=== PATIENT | female | born 1955 | race Caucasian/White ===

== ENCOUNTER 2020-05-19 09:33 | Outpatient (REF) | payer OTHER, SELFPAY | END 2020-05-19 09:34 | disposition home or self-care (01) | LOC: HO.LNP 09:33 | PROVIDERS: PCP Internal Medicine; Visit Provider Surgery | DX: L91.8 Other hypertrophic disorders of the skin (principal); Z88.0 Allergy status to penicillin; Z88.2 Allergy status to sulfonamides; Z88.8 Allergy status to other drugs, medicaments and biological substances | CPT/HCPCS: 11200; 88305 ==

== ENCOUNTER 2020-10-23 07:01 | Day surgery (SDC) | payer OTHER, SELFPAY ==
[2020-10-19 12:38] VITALS: BMI 31.8
--- NOTE | 2020-10-22 10:26 | HO.ANESPROP2 ---
HPI - Anesthesia Eval Consult details Narrative: 65yo F for Colonoscopy PMFSH Active Problems Active Problems: All Active Problems (Updated 05/19/20 @ 11:24 by Mack King, RN) Multiple acquired skin tags (Acute) Past Medical History Medical History (Updated 05/19/20 @ 11:24 by Mack King, RN) Hypercholesterolemia Interstitial cystitis Low back pain Surgical History Surgical History (Updated 10/16/20 @ 14:51 by Ingrid Faulkner) H/O colonoscopy History of back surgery History of Hx of shoulder surgery Hx of tubal ligation Social History Social History Smoking Status: Unknown if ever smoked Advance Directives Information Provided: No Meds Allergies Allergy/AdvReac Type Severity Reaction Status Date / Time erythromycin base Allergy Intermediate Hives Verified 10/16/20 14:49 fluoxetine [Prozac] Allergy Intermediate rash Verified 10/16/20 14:48 penicillin V Allergy Intermediate hives Verified 10/16/20 14:48 Sulfa (Sulfonamide Allergy Intermediate hives Verified 10/16/20 14:48 Antibiotics) buspirone [From BuSpar] AdvReac Intermediate blurred Verified 10/16/20 14:49 vision SSRI's Allergy Intermediate oral Uncoded 10/16/20 14:48 swelling Home Medications Medication Instructions Recorded Confirmed Last Taken Type albuterol sulfate 90 mcg/actuation 1 puff INHALATION Q4-6H PRN 05/19/20 Unknown History aerosol inhaler acetaminophen [Tylenol] 325 mg PO QID PRN 10/19/20 10/19/20 Unknown History aspirin [Aspirin Low Dose] 81 mg PO DAILY 10/19/20 10/19/20 10/16/20 History ibuprofen [Advil] 200 mg PO BID PRN 10/19/20 10/19/20 10/16/20 History multivitamin 1 tab PO DAILY 10/19/20 10/19/20 Unknown History omega-3 fatty acids [Fish Oil] 1,000 mg PO DAILY 10/19/20 10/19/20 10/16/20 History phytosterol combination no.1 500 mg PO DAILY 10/19/20 10/19/20 Unknown History [Cholest Care] vit C,E-Hx-jnidt-lutein-zeaxan 1 tab PO BID 10/19/20 10/19/20 Unknown History [PreserVision AREDS-2] Exam Exam Date and Time: October 22, 2020 1026 Height,Weight and Vital Signs: Height 5 ft 6.5 in Weight 90.718 kg Assessment and Plan Assessment Anesthesia Assessment: Chart Reviewed
[2020-10-23 07:34] VITALS: BP 148/87; PULSE 74; RESP 16; TEMP 36.5; O2SAT 97
[2020-10-23] MEDS: Lactated Ringers 1,000 ML 100 ML IVCONT (07:55)
[2020-10-23 09:39] VITALS: PULSE 85
--- NOTE | 2020-10-23 09:39 | PM.OP ---
Brief Operative Note Date of Service: 10/23/20 Pre-op diagnosis: Screening Post-op diagnosis: other (Colon polyp, Diverticulosis) Procedure: Colonoscopy to the cecum with biopsy/removal of polyp Surgeon: Leo Latham Anesthesia: MAC Estimated blood loss (mL): 4.0 Pathology: other (A. Transverse colon polyp) Condition: stable Disposition: PACU
[2020-10-23 09:52] VITALS: BP 128/87; PULSE 79; RESP 18; O2SAT 100
--- NOTE | 2020-10-23 09:55 | OP_ITS ---
SURGEON: Leo Latham MD INDICATIONS: The patient presents for evaluation of colorectal cancer screening, personal history of tubular adenoma. Full consent has been obtained from her for this, including risks of bleeding and perforation. PREOPERATIVE DIAGNOSIS: POSTOPERATIVE DIAGNOSIS: PROCEDURE PERFORMED: Colonoscopy to the cecum with biopsy and removal of polyp. ESTIMATED BLOOD LOSS: COMPLICATIONS: ANESTHESIA: Monitored anesthesia care. ASSISTANTS: SPECIMENS: PREOPERATIVE DIAGNOSES: Colorectal cancer screening and personal history of tubular adenoma of the colon. POSTOPERATIVE DIAGNOSES: Colorectal cancer screening and personal history of tubular adenoma of the colon, small colon polyp, diverticulosis and internal hemorrhoids. DESCRIPTION OF PROCEDURE: The patient was placed in the left lateral decubitus position. The digital rectal exam revealed no abnormalities. The Olympus video pediatric colonoscope was entered into the rectum and advanced easily to the cecum. Once in the cecum, I did identify normal-appearing cecal pouch with appendiceal orifice and a normal-appearing ileocecal valve. The entire cecum and ileocecal valve were well visualized and appeared normal. There was transillumination of light deep in the right lower quadrant. The scope was slowly withdrawn assessing all mucosal surfaces carefully. Preparation was excellent. In the transverse colon, was an approximately 3 or 4 mm polyp, which was biopsied and completely removed with cold biopsy forceps. I did not visualize any other polyps, colitis, nor angiodysplasia. There was a mild amount of sigmoid diverticulosis. In the rectum, scope was retroflexed visualizing internal hemorrhoids, but no other pathology. The rectal mucosa appeared normal. Scope was straightened out and withdrawn from the patient. She tolerated the procedure well and was returned to the recovery area in stable condition. IMPRESSION: 1. Small colon polyp, status post biopsy and removal. 2. Diverticulosis. 3. Internal hemorrhoids. PLAN: The results of biopsy will be checked. I would recommend a repeat colonoscopy in 5 years for further screening. She will otherwise see me on a p.r.n. basis. MD ARIA [place]/ZULEMA / [phone]
[2020-10-23 10:07] VITALS: BP 164/84; PULSE 84; RESP 18; O2SAT 98
[2020-10-23 10:24] VITALS: TEMP 36.7
== END 2020-10-23 10:48 | disposition home or self-care (01) ==
PROVIDERS: PCP Internal Medicine; Visit Provider Internal Medicine
PROC: 0DJD8ZZ Inspection of Lower Intestinal Tract, Via Natural or Artificial Opening Endoscopic (ICD-10-PCS; CPT 45378; principal; 2020-10-23 08:20)
DX: Z12.11 Encounter for screening for malignant neoplasm of colon (principal); Z86.010 Personal history of colon polyps; K63.5 Polyp of colon; K57.30 Diverticulosis of large intestine without perforation or abscess without bleeding; K64.8 Other hemorrhoids; Z79.82 Long term (current) use of aspirin; Z79.899 Other long term (current) drug therapy; Z88.0 Allergy status to penicillin; Z88.2 Allergy status to sulfonamides; Z88.8 Allergy status to other drugs, medicaments and biological substances
CPT/HCPCS: 45380; 88305

== ENCOUNTER 2020-10-29 10:49 | Outpatient (REF) | payer OTHER, SELFPAY ==
--- NOTE | ~2020-10-29 | XR_ITS ---
EXAMINATION: XR CHEST CLINICAL INFORMATION: Bronchitis COMPARISON: 07/26/2010 TECHNIQUE: 2 views of the chest were obtained. FINDINGS: The lungs are well expanded. There is no focal consolidation, edema, or effusion. No pneumothorax. The cardiomediastinal silhouette is within normal limits. No acute osseous abnormality. XR/XR chest 2V IMPRESSION: No acute pulmonary finding.
== END 2020-10-29 10:50 | disposition home or self-care (01) ==
LOC: HO.XRAY 10:49
PROVIDERS: PCP Internal Medicine; Visit Provider Internal Medicine
DX: J40 Bronchitis, not specified as acute or chronic (principal)
CPT/HCPCS: 71046

== ENCOUNTER → 2021-01-11 10:47 | Outpatient (BNVA) | payer OTHER, SELFPAY | PROVIDERS: PCP Internal Medicine; Referring Provider Internal Medicine; Visit Provider Surgery ==

== ENCOUNTER 2021-01-28 10:42 | Outpatient (REF) | payer OTHER, SELFPAY | END 2021-01-28 10:43 | disposition home or self-care (01) | LOC: HO.LAB 10:42 | PROVIDERS: PCP Internal Medicine; Referring Provider Internal Medicine; Visit Provider Surgery | DX: L91.8 Other hypertrophic disorders of the skin (principal); D23.9 Other benign neoplasm of skin, unspecified; Z79.899 Other long term (current) drug therapy | CPT/HCPCS: 11400; 11420; 88304; 88305 ==

== ENCOUNTER 2021-04-13 07:52 | Outpatient (REF) | payer OTHER, SELFPAY ==
--- NOTE | ~2021-04-13 | MR_ITS ---
EXAMINATION: MR BRAIN WITHOUT AND WITH CONTRAST CLINICAL INFORMATION: Left ear tinnitus. Vertigo. COMPARISON: None available. TECHNIQUE: Multiplanar, multisequence MRI of the brain was obtained using a skull base protocol without and following the administration of 7.5 mL of Gadavist intravenous contrast. FINDINGS: No focal restricted diffusion is demonstrated to suggest acute or subacute cerebral ischemia. No evidence of acute or chronic hemorrhagic products on heme-sensitive imaging. Scattered periventricular, deep white matter, and brainstem T2 FLAIR hyperintensities consistent with mild to moderate underlying microangiopathy. Proportional prominence of the ventricles and sulcal spaces without evidence of obstructive hydrocephalus. No abnormal mass effect. No midline shift. Normal appearance of the pituitary gland. Normal positioning of the cerebellar tonsils. No mass of the cerebellopontine angles. Normal appearance of the cranial nerve V, VII, and VIII nerve roots. No edema or vascular loops near the nerve root entry sites. Normal appearance of the internal auditory canals without enhancing mass lesions. No abnormal enhancement along the course of the facial nerves bilaterally. Normal appearance of the labyrinthine structures without loss of T2 signal or abnormal enhancement. Normal arterial and venous vascular flow voids are present. No abnormal intracranial contrast enhancement. Normal, homogeneous marrow signal. Mild mucosal thickening of the paranasal sinuses. Mild rightward nasal septal deviation. No signal abnormalities within the mastoids. Moderate degenerative arthropathy of the temporomandibular joints. MR/MR head/brain wo/w con IMPRESSION: 1. No acute intracranial abnormalities. No abnormal intracranial enhancement. 2. Mild to moderate underlying microangiopathy.
== END 2021-04-13 07:53 | disposition home or self-care (01) ==
LOC: HO.MRI 07:52
PROVIDERS: PCP Internal Medicine; Visit Provider Otolaryngology
DX: H93.12 Tinnitus, left ear (principal); H81.4 Vertigo of central origin
CPT/HCPCS: 70553; A9585

== ENCOUNTER 2021-04-29 08:48 | Outpatient (REF) | payer OTHER, SELFPAY | END 2021-04-29 08:49 | disposition home or self-care (01) | LOC: HO.LAB 08:48 | PROVIDERS: PCP Internal Medicine; Visit Provider Surgery | DX: L91.8 Other hypertrophic disorders of the skin (principal) | CPT/HCPCS: 11200; 11400; 88304; 88305 ==

== ENCOUNTER 2021-06-15 09:49 | Outpatient (REF) | payer OTHER, SELFPAY ==
[2021-06-15 10:20] LABS: MANUAL DIFF FLAG NO
[2021-06-15 10:49] LABS: Basophils Absolute Auto 0.1 X10*3/uL (0.0-0.2); Basophils Percent Auto 1.1 % (0-2); Eosinophils Absolute Auto 0.2 X10*3/uL (0.0-0.4); Hematocrit 42.6 % (37.0-47.0); Hemoglobin 13.9 g/dl (12.0-16.0); Imm Gran Abs Auto 0.03 X10*3/uL (0.00-0.03); Imm Gran Pct Auto 0.4 % (0.0-0.4); Lymphocytes Absolute Auto 1.9 X10*3/uL (1.2-4.9); Lymphocytes Percent Auto 25.3 % (20-40); Mean Corpuscular HGB Conc 32.6 g/dl (31.0-35.0); Mean Corpuscular Hemoglobin 29.1 pg (27.0-33.0); Mean Corpuscular Volume 89.1 fL (80.0-98.0); Monocytes Absolute Auto 0.5 X10*3/uL (0.1-1.2); Monocytes Percent Auto 6.8 % (2-11); Neutrophils Absolute Auto 4.7 x10*3/uL (2.0-8.3); Neutrophils Percent Auto 63.4 % (45-73); Platelet Count 298 X10*3/uL (160-400); Red Blood Count 4.78 X10*6/uL (4.20-5.50); Red Cell Distribution Width 14.4 % (11.0-16.0); White Blood Count 7.4 X10*3/uL (4.8-10.8)
[2021-06-15 11:23] LABS: Alanine Aminotransferase 33 U/L (0-31); Albumin Level 4.2 g/dL (3.5-5.0); Alkaline Phosphatase 75 U/L (39-117); Anion Gap 10 (12-20); Aspartate Amino Transferase 38 U/L (5-31); Bilirubin Total 0.4 mg/dL (0.0-1.0); Blood Urea Nitrogen 17 mg/dL (9-16); Calcium 9.3 mg/dL (8.4-10.2); Carbon Dioxide 31 mmol/L (22-29); Chloride 104 mmol/L (96-108); Estimated Glomerular Filt Rate > 60; Glucose Fasting 95 mg/dL (60-99); Potassium 4.8 mmol/L (3.3-5.1); Sodium 140 mmol/L (135-145); Total Protein 6.7 g/dL (6.5-8.0)
[2021-06-15 11:45] LABS: Thyroid Stimulating Hormone 1.61 uIU/mL (0.32-4.0); Vitamin D 25-OH Total 58.7 ng/mL (>30)
[2021-06-15 12:17] LABS: Folate > 20.0 ng/mL (> or = 4.0); Vitamin B12 992 pg/mL (200-900)
[2021-06-19 11:11] LABS: Vitamin B1 21 nmol/L (8-30)
[2021-06-22 06:06] LABS: Lipoprotein A 20 nmol/L (<75)
== END 2021-06-15 09:50 | disposition home or self-care (01) ==
LOC: HO.LAB 09:49
PROVIDERS: PCP Internal Medicine; Visit Provider Internal Medicine
DX: H93.13 Tinnitus, bilateral (principal); E78.00 Pure hypercholesterolemia, unspecified; R41.3 Other amnesia
CPT/HCPCS: 36415; 80053; 82306; 82607; 82746; 83695; 84425; 84443; 85025

== ENCOUNTER 2022-07-14 10:31 | Outpatient (REF) | payer OTHER, SELFPAY ==
[2022-07-14 10:48] LABS: MANUAL DIFF FLAG NO
[2022-07-14 11:48] LABS: Basophils Absolute Auto 0.1 X10*3/uL (0.0-0.2); Basophils Percent Auto 0.9 % (0-2); Eosinophils Absolute Auto 0.2 X10*3/uL (0.0-0.4); Eosinophils Percent Auto 3.6 % (0-4); Hematocrit 40.9 % (37.0-47.0); Hemoglobin 13.1 g/dl (12.0-16.0); Imm Gran Abs Auto 0.01 X10*3/uL (0.00-0.03); Imm Gran Pct Auto 0.1 % (0.0-0.4); Lymphocytes Absolute Auto 1.5 X10*3/uL (1.2-4.9); Lymphocytes Percent Auto 22.5 % (20-40); Mean Corpuscular Hemoglobin 28.5 pg (27.0-33.0); Mean Corpuscular Volume 89.1 fL (80.0-98.0); Mean Platelet Volume 9.7 fL (9.4-12.3); Monocytes Absolute Auto 0.6 X10*3/uL (0.1-1.2); Monocytes Percent Auto 8.5 % (2-11); Neutrophils Absolute Auto 4.3 x10*3/uL (2.0-8.3); Neutrophils Percent Auto 64.4 % (45-73); Platelet Count 272 X10*3/uL (160-400); Red Blood Count 4.59 X10*6/uL (4.20-5.50); Red Cell Distribution Width 14.6 % (11.0-16.0); White Blood Count 6.7 X10*3/uL (4.8-10.8)
[2022-07-14 13:37] LABS: Alanine Aminotransferase 20 U/L (0-31); Alkaline Phosphatase 82 U/L (39-117); Anion Gap 13 (12-20); Aspartate Amino Transferase 25 U/L (5-31); Bilirubin Total 0.6 mg/dL (0.0-1.0); Blood Urea Nitrogen 16 mg/dL (9-16); Calcium 8.8 mg/dL (8.4-10.2); Carbon Dioxide 26 mmol/L (22-29); Chloride 105 mmol/L (96-108); Cholesterol 228 mg/dL; Estimated Glomerular Filt Rate > 60; Glucose Fasting 87 mg/dL (60-99); HDL Cholesterol 60 mg/dL; LDL Cholesterol Calculated 148 mg/dl; Potassium 4.7 mmol/L (3.3-5.1); Sodium 139 mmol/L (135-145); Thyroid Stimulating Hormone 1.68 uIU/mL (0.32-4.0); Total Protein 6.1 g/dL (6.5-8.0); Triglycerides 103 mg/dL; Vitamin D 25-OH Total 42.7 ng/mL (>30)
== END 2022-07-14 10:32 | disposition home or self-care (01) ==
LOC: HO.LAB 10:31
PROVIDERS: PCP Internal Medicine; Visit Provider Internal Medicine
DX: E78.00 Pure hypercholesterolemia, unspecified (principal)
CPT/HCPCS: 36415; 80053; 80061; 82306; 84443; 85025

== ENCOUNTER → 2022-08-18 09:24 | Outpatient (BNVA) | payer OTHER, SELFPAY | PROVIDERS: PCP Internal Medicine; Visit Provider Surgery | DX: L98.9 Disorder of the skin and subcutaneous tissue, unspecified (principal) | CPT/HCPCS: 11200 ==

== ENCOUNTER 2022-08-25 09:35 | Outpatient (REF) | payer OTHER, SELFPAY ==
[2022-08-25 09:44] LABS: MANUAL DIFF FLAG NO
[2022-08-25 10:40] LABS: Basophils Absolute Auto 0.1 X10*3/uL (0.0-0.2); Basophils Percent Auto 1.2 % (0-2); Eosinophils Absolute Auto 0.2 X10*3/uL (0.0-0.4); Eosinophils Percent Auto 2.9 % (0-4); Hematocrit 43.8 % (37.0-47.0); Hemoglobin 13.8 g/dl (12.0-16.0); Imm Gran Abs Auto 0.03 X10*3/uL (0.00-0.03); Imm Gran Pct Auto 0.4 % (0.0-0.4); Lymphocytes Absolute Auto 1.6 X10*3/uL (1.2-4.9); Lymphocytes Percent Auto 23.1 % (20-40); Mean Corpuscular HGB Conc 31.5 g/dl (31.0-35.0); Mean Platelet Volume 9.2 fL (9.4-12.3); Monocytes Absolute Auto 0.5 X10*3/uL (0.1-1.2); Monocytes Percent Auto 7.8 % (2-11); Neutrophils Absolute Auto 4.5 x10*3/uL (2.0-8.3); Neutrophils Percent Auto 64.6 % (45-73); Platelet Count 276 X10*3/uL (160-400); Red Blood Count 4.92 X10*6/uL (4.20-5.50); Red Cell Distribution Width 14.4 % (11.0-16.0); White Blood Count 6.9 X10*3/uL (4.8-10.8)
[2022-08-25 11:13] LABS: Anion Gap 12 (12-20); Blood Urea Nitrogen 17 mg/dL (9-16); Calcium 9.4 mg/dL (8.4-10.2); Carbon Dioxide 30 mmol/L (22-29); Chloride 104 mmol/L (96-108); Estimated Glomerular Filt Rate > 60; Glucose Random 75 mg/dL (60-115); Magnesium 2.1 mg/dL (1.6-2.6); Potassium 4.8 mmol/L (3.3-5.1); Sodium 141 mmol/L (135-145)
== END 2022-08-25 09:36 | disposition home or self-care (01) ==
LOC: HO.LAB 09:35
PROVIDERS: PCP Internal Medicine; Visit Provider Internal Medicine
DX: R25.2 Cramp and spasm (principal)
CPT/HCPCS: 36415; 80048; 83735; 85025

== ENCOUNTER 2023-02-22 16:17 | Outpatient (REF) | payer OTHER, SELFPAY ==
--- NOTE | ~2023-02-22 | XR_ITS ---
EXAMINATION: XR CERVICAL SPINE CLINICAL INFORMATION: Strain of neck COMPARISON: 06/05/2014 TECHNIQUE: 6 views of the cervical spine, inclusive of flexion and extension views, were obtained. FINDINGS: Redemonstration cervical lordotic reversal. Progression disc space narrowings at C4-C6. C5 and C6 vertebral body height losses likely degenerative. Degenerative spurring again seen multilevel neuroforaminal narrowings are again identified. Facet hypertrophic changes are present. Odontoid is intact, posterior elements are aligned and no prevertebral soft tissue swelling seen. Lung apices are clear. Soft tissues are unremarkable. XR/XR cervical spine 5V IMPRESSION: Cervical lordotic reversal, progression of cervical spondylosis, and bilateral neural foraminal narrowings.
== END 2023-02-22 16:18 | disposition home or self-care (01) ==
LOC: HO.XRAY 16:17
PROVIDERS: Visit Provider Internal Medicine
DX: S16.1XXA Strain of muscle, fascia and tendon at neck level, initial encounter (principal)
CPT/HCPCS: 72050

== ENCOUNTER 2023-06-21 12:05 | Outpatient (REF) | payer OTHER, SELFPAY ==
[2023-06-21 12:33] LABS: MANUAL DIFF FLAG NO
[2023-06-21 12:41] LABS: Basophils Absolute Auto 0.1 X10*3/uL (0.0-0.2); Basophils Percent Auto 0.8 % (0-2); Eosinophils Absolute Auto 0.2 X10*3/uL (0.0-0.4); Eosinophils Percent Auto 2.6 % (0-4); Hematocrit 42.5 % (37.0-47.0); Hemoglobin 13.4 g/dl (12.0-16.0); Imm Gran Abs Auto 0.03 X10*3/uL (0.00-0.03); Imm Gran Pct Auto 0.4 % (0.0-0.4); Lymphocytes Percent Auto 26.9 % (20-40); Mean Corpuscular HGB Conc 31.5 g/dl (31.0-35.0); Mean Corpuscular Hemoglobin 29.2 pg (27.0-33.0); Mean Corpuscular Volume 92.6 fL (80.0-98.0); Mean Platelet Volume 9.1 fL (9.4-12.3); Monocytes Absolute Auto 0.4 X10*3/uL (0.1-1.2); Neutrophils Absolute Auto 4.7 x10*3/uL (2.0-8.3); Neutrophils Percent Auto 63.3 % (45-73); Platelet Count 286 X10*3/uL (160-400); Red Blood Count 4.59 X10*6/uL (4.20-5.50); Red Cell Distribution Width 14.6 % (11.0-16.0); White Blood Count 7.4 X10*3/uL (4.8-10.8)
[2023-06-21 13:17] LABS: Alanine Aminotransferase 17 U/L (0-31); Albumin Level 3.9 g/dL (3.5-5.0); Alkaline Phosphatase 63 U/L (39-117); Anion Gap 10 (12-20); Aspartate Amino Transferase 23 U/L (5-31); Bilirubin Direct < 0.2 mg/dL (0.0-0.5); Bilirubin Total 0.2 mg/dL (0.0-1.0); Blood Urea Nitrogen 17 mg/dL (9-16); C Reactive Protein 0.25 mg/dL (< or = 0.50); Calcium 9.4 mg/dL (8.4-10.2); Carbon Dioxide 29 mmol/L (22-29); Chloride 107 mmol/L (96-108); Estimated Glomerular Filt Rate > 60; Glucose Random 102 mg/dL (60-115); Potassium 4.4 mmol/L (3.3-5.1); Sodium 142 mmol/L (135-145); Total Protein 6.4 g/dL (6.5-8.0)
[2023-06-21 13:27] LABS: Erythrocyte Sedimentation Rate 10 MM/HR (0-20)
== END 2023-06-21 12:06 | disposition home or self-care (01) ==
LOC: HO.LAB 12:05
PROVIDERS: PCP Internal Medicine; Visit Provider Internal Medicine
DX: R53.83 Other fatigue (principal)
CPT/HCPCS: 36415; 80048; 80076; 84443; 85025; 85652; 86140

== ENCOUNTER 2023-09-26 12:13 | Outpatient (REF) | payer OTHER, SELFPAY ==
[2023-09-26 14:07] LABS: Appearance Urine Clear; Color Urine Yellow; Glucose Urine UA Negative (Negative); Leukocyte Esterase Urine Negative (Negative); Nitrite Urine Negative (Negative); Specific Gravity - Urine 1.015 (1.005-1.025); Urine Blood Negative (Negative); Urine Ketones Negative (Negative); Urine Protein Negative (Neg-Trace)
== END 2023-09-26 12:14 | disposition home or self-care (01) ==
LOC: HO.LAB 12:13
PROVIDERS: PCP Internal Medicine; Visit Provider Internal Medicine
DX: R30.0 Dysuria (principal)
CPT/HCPCS: 81003; 87086

== ENCOUNTER 2023-12-27 08:19 | Outpatient (REF) | payer OTHER, SELFPAY ==
--- NOTE | ~2023-12-27 | XR_ITS ---
EXAMINATION: XR CHEST CLINICAL INFORMATION: Hypercholesterolemia, interstitial cystitis. COMPARISON: October 29, 2020 TECHNIQUE: 2 views of the chest were obtained. FINDINGS: The lungs are well inflated. There is no gross pneumothorax. Heart size is normal. S-shaped thoracolumbar scoliosis with multilevel degenerative changes. No pleural effusion. No new focal consolidation to suggest pneumonia. XR/XR chest 2V IMPRESSION: No evidence of pneumonia.
[2023-12-27 08:32] LABS: MANUAL DIFF FLAG NO
[2023-12-27 08:55] LABS: Basophils Absolute Auto 0.1 X10*3/uL (0.0-0.2); Basophils Percent Auto 1.2 % (0-2); Eosinophils Absolute Auto 0.2 X10*3/uL (0.0-0.4); Eosinophils Percent Auto 2.8 % (0-4); Hemoglobin 15.2 g/dl (12.0-16.0); Imm Gran Abs Auto 0.03 X10*3/uL (0.00-0.03); Imm Gran Pct Auto 0.5 % (0.0-0.4); Lymphocytes Absolute Auto 1.6 X10*3/uL (1.2-4.9); Lymphocytes Percent Auto 25.5 % (20-40); Mean Corpuscular HGB Conc 32.3 g/dl (31.0-35.0); Mean Corpuscular Hemoglobin 29.1 pg (27.0-33.0); Mean Corpuscular Volume 89.9 fL (80.0-98.0); Mean Platelet Volume 9.4 fL (9.4-12.3); Monocytes Absolute Auto 0.4 X10*3/uL (0.1-1.2); Monocytes Percent Auto 6.9 % (2-11); Neutrophils Absolute Auto 3.8 x10*3/uL (2.0-8.3); Neutrophils Percent Auto 63.1 % (45-73); Platelet Count 255 X10*3/uL (160-400); Red Blood Count 5.23 X10*6/uL (4.20-5.50); Red Cell Distribution Width 14.8 % (11.0-16.0); White Blood Count 6.1 X10*3/uL (4.8-10.8)
[2023-12-27 09:57] LABS: Alanine Aminotransferase 16 U/L (0-31); Albumin Level 4.2 g/dL (3.5-5.0); Alkaline Phosphatase 70 U/L (39-117); Anion Gap 12 (12-20); Aspartate Amino Transferase 21 U/L (5-31); Bilirubin Total 0.5 mg/dL (0.0-1.0); Blood Urea Nitrogen 22 mg/dL (9-16); Calcium 9.2 mg/dL (8.4-10.2); Carbon Dioxide 27 mmol/L (22-29); Chloride 107 mmol/L (96-108); Cholesterol 259 mg/dL (<200); Estimated Glomerular Filt Rate > 60; Glucose Fasting 95 mg/dL (60-99); HDL Cholesterol 54 mg/dL (>40); LDL Cholesterol Calculated 174 mg/dL (<100); Potassium 4.5 mmol/L (3.3-5.1); Sodium 141 mmol/L (135-145); Triglycerides 156 mg/dL (<150)
[2023-12-27 10:07] LABS: Thyroid Stimulating Hormone 2.14 uIU/mL (0.32-4.0); Vitamin D 25-OH Total 54.7 ng/mL (>30)
== END 2023-12-27 08:20 | disposition home or self-care (01) ==
LOC: HO.LAB 08:19
PROVIDERS: PCP Internal Medicine; Visit Provider Internal Medicine
DX: Z00.00 Encounter for general adult medical examination without abnormal findings (principal); E78.00 Pure hypercholesterolemia, unspecified; N30.10 Interstitial cystitis (chronic) without hematuria
CPT/HCPCS: 36415; 71046; 80053; 80061; 82306; 84443; 85025

== ENCOUNTER 2024-05-09 08:24 | Outpatient (REF) | payer MEDICARE, OTHER, SELFPAY ==
--- NOTE | ~2024-05-09 | XR_ITS ---
EXAMINATION: XR LUMBAR SPINE XR PELVIS XR SACRUM/COCCYX XR SACROILIAC JOINTS CLINICAL INFORMATION: Lower back pain. COMPARISON: None available. TECHNIQUE: AP, lateral, and coned-down views of the lumbar spine. AP view the pelvis. AP and lateral views of the sacrum and coccyx. Bilateral Judet views of the sacroiliac joints. FINDINGS: Lumbar Spine: Normal vertebral body alignment. The lumbar lordosis is maintained. No acute fracture or subluxation. No loss of vertebral body height. Loss of intervertebral disc height with endplate osteophytes throughout the lumbar spine, most severe at L5-S1. Prominent bilateral facet arthropathy throughout the lower lumbar spine. No concerning lytic or blastic osseous lesion. No abnormal soft tissue calcification. Pelvis: No acute fracture or dislocation. Mild bilateral hip joint space narrowing with small marginal osteophytes. No osseous erosion. No evidence of femoral head avascular necrosis. No abnormal soft tissue calcification. Sacrum/Coccyx: No acute fracture or subluxation. No concerning lytic or blastic osseous lesion. No abnormal soft tissue calcification. Sacral Iliac Joints: Mild bilateral sacral iliac joint space narrowing with tiny marginal osteophytes. No periarticular erosion. No concerning lytic or blastic osseous lesion. No abnormal soft tissue calcification. XR/XR sacroiliac joint 1-2V IMPRESSION: 1. Multilevel degenerative disc disease throughout the lumbar spine, most severe at L5-S1. Prominent lower lumbar spine facet arthropathy. 2. Mild bilateral sacroiliac osteoarthritis. 3. Mild bilateral hip osteoarthritis. 4. No acute fracture or dislocation. Electronically signed by: Moise Yi MD 05/09/2024 11:24 AM EDT
--- NOTE | ~2024-05-09 | XR_ITS ---
EXAMINATION: XR LUMBAR SPINE XR PELVIS XR SACRUM/COCCYX XR SACROILIAC JOINTS CLINICAL INFORMATION: Lower back pain. COMPARISON: None available. TECHNIQUE: AP, lateral, and coned-down views of the lumbar spine. AP view the pelvis. AP and lateral views of the sacrum and coccyx. Bilateral Judet views of the sacroiliac joints. FINDINGS: Lumbar Spine: Normal vertebral body alignment. The lumbar lordosis is maintained. No acute fracture or subluxation. No loss of vertebral body height. Loss of intervertebral disc height with endplate osteophytes throughout the lumbar spine, most severe at L5-S1. Prominent bilateral facet arthropathy throughout the lower lumbar spine. No concerning lytic or blastic osseous lesion. No abnormal soft tissue calcification. Pelvis: No acute fracture or dislocation. Mild bilateral hip joint space narrowing with small marginal osteophytes. No osseous erosion. No evidence of femoral head avascular necrosis. No abnormal soft tissue calcification. Sacrum/Coccyx: No acute fracture or subluxation. No concerning lytic or blastic osseous lesion. No abnormal soft tissue calcification. Sacral Iliac Joints: Mild bilateral sacral iliac joint space narrowing with tiny marginal osteophytes. No periarticular erosion. No concerning lytic or blastic osseous lesion. No abnormal soft tissue calcification. XR/XR sacrum coccyx min 2V IMPRESSION: 1. Multilevel degenerative disc disease throughout the lumbar spine, most severe at L5-S1. Prominent lower lumbar spine facet arthropathy. 2. Mild bilateral sacroiliac osteoarthritis. 3. Mild bilateral hip osteoarthritis. 4. No acute fracture or dislocation. Electronically signed by: Moise Yi MD 05/09/2024 11:24 AM EDT
--- NOTE | ~2024-05-09 | XR_ITS ---
EXAMINATION: XR LUMBAR SPINE XR PELVIS XR SACRUM/COCCYX XR SACROILIAC JOINTS CLINICAL INFORMATION: Lower back pain. COMPARISON: None available. TECHNIQUE: AP, lateral, and coned-down views of the lumbar spine. AP view the pelvis. AP and lateral views of the sacrum and coccyx. Bilateral Judet views of the sacroiliac joints. FINDINGS: Lumbar Spine: Normal vertebral body alignment. The lumbar lordosis is maintained. No acute fracture or subluxation. No loss of vertebral body height. Loss of intervertebral disc height with endplate osteophytes throughout the lumbar spine, most severe at L5-S1. Prominent bilateral facet arthropathy throughout the lower lumbar spine. No concerning lytic or blastic osseous lesion. No abnormal soft tissue calcification. Pelvis: No acute fracture or dislocation. Mild bilateral hip joint space narrowing with small marginal osteophytes. No osseous erosion. No evidence of femoral head avascular necrosis. No abnormal soft tissue calcification. Sacrum/Coccyx: No acute fracture or subluxation. No concerning lytic or blastic osseous lesion. No abnormal soft tissue calcification. Sacral Iliac Joints: Mild bilateral sacral iliac joint space narrowing with tiny marginal osteophytes. No periarticular erosion. No concerning lytic or blastic osseous lesion. No abnormal soft tissue calcification. XR/XR pelvis 1-2V IMPRESSION: 1. Multilevel degenerative disc disease throughout the lumbar spine, most severe at L5-S1. Prominent lower lumbar spine facet arthropathy. 2. Mild bilateral sacroiliac osteoarthritis. 3. Mild bilateral hip osteoarthritis. 4. No acute fracture or dislocation. Electronically signed by: Moise Yi MD 05/09/2024 11:24 AM EDT
--- NOTE | ~2024-05-09 | XR_ITS ---
EXAMINATION: XR LUMBAR SPINE XR PELVIS XR SACRUM/COCCYX XR SACROILIAC JOINTS CLINICAL INFORMATION: Lower back pain. COMPARISON: None available. TECHNIQUE: AP, lateral, and coned-down views of the lumbar spine. AP view the pelvis. AP and lateral views of the sacrum and coccyx. Bilateral Judet views of the sacroiliac joints. FINDINGS: Lumbar Spine: Normal vertebral body alignment. The lumbar lordosis is maintained. No acute fracture or subluxation. No loss of vertebral body height. Loss of intervertebral disc height with endplate osteophytes throughout the lumbar spine, most severe at L5-S1. Prominent bilateral facet arthropathy throughout the lower lumbar spine. No concerning lytic or blastic osseous lesion. No abnormal soft tissue calcification. Pelvis: No acute fracture or dislocation. Mild bilateral hip joint space narrowing with small marginal osteophytes. No osseous erosion. No evidence of femoral head avascular necrosis. No abnormal soft tissue calcification. Sacrum/Coccyx: No acute fracture or subluxation. No concerning lytic or blastic osseous lesion. No abnormal soft tissue calcification. Sacral Iliac Joints: Mild bilateral sacral iliac joint space narrowing with tiny marginal osteophytes. No periarticular erosion. No concerning lytic or blastic osseous lesion. No abnormal soft tissue calcification. XR/XR lumbar spine 2-3V IMPRESSION: 1. Multilevel degenerative disc disease throughout the lumbar spine, most severe at L5-S1. Prominent lower lumbar spine facet arthropathy. 2. Mild bilateral sacroiliac osteoarthritis. 3. Mild bilateral hip osteoarthritis. 4. No acute fracture or dislocation. Electronically signed by: Moise Yi MD 05/09/2024 11:24 AM EDT
== END 2024-05-09 08:25 | disposition home or self-care (01) ==
LOC: HO.XRAY 08:24
PROVIDERS: PCP Internal Medicine; Visit Provider Internal Medicine
DX: M54.50 Low back pain, unspecified (principal)
CPT/HCPCS: 72100; 72170; 72200; 72220

== ENCOUNTER 2024-06-18 08:28 | Outpatient (REF) | payer MEDICARE, OTHER, SELFPAY ==
[2024-06-18 08:56] LABS: MANUAL DIFF FLAG NO
[2024-06-18 09:21] LABS: Basophils Absolute Auto 0.1 X10*3/uL (0.0-0.2); Basophils Percent Auto 1.1 % (0-2); Eosinophils Absolute Auto 0.1 X10*3/uL (0.0-0.4); Eosinophils Percent Auto 2.3 % (0-4); Hematocrit 44.3 % (37.0-47.0); Hemoglobin 14.5 g/dl (12.0-16.0); Imm Gran Abs Auto 0.02 X10*3/uL (0.00-0.03); Imm Gran Pct Auto 0.4 % (0.0-0.4); Lymphocytes Absolute Auto 1.5 X10*3/uL (1.2-4.9); Lymphocytes Percent Auto 28.4 % (20-40); Mean Corpuscular HGB Conc 32.7 g/dl (31.0-35.0); Mean Corpuscular Hemoglobin 29.8 pg (27.0-33.0); Mean Platelet Volume 8.9 fL (9.4-12.3); Monocytes Absolute Auto 0.5 X10*3/uL (0.1-1.2); Monocytes Percent Auto 8.9 % (2-11); Neutrophils Absolute Auto 3.1 x10*3/uL (2.0-8.3); Neutrophils Percent Auto 58.9 % (45-73); Platelet Count 254 X10*3/uL (160-400); Red Blood Count 4.87 X10*6/uL (4.20-5.50); Red Cell Distribution Width 14.3 % (11.0-16.0); White Blood Count 5.3 X10*3/uL (4.8-10.8)
[2024-06-18 11:08] LABS: Alanine Aminotransferase 19 U/L (0-31); Alkaline Phosphatase 63 U/L (39-117); Anion Gap 8 (12-20); Aspartate Amino Transferase 24 U/L (5-31); Bilirubin Total 0.3 mg/dL (0.0-1.0); Blood Urea Nitrogen 18 mg/dL (9-16); Calcium 9.3 mg/dL (8.4-10.2); Carbon Dioxide 30 mmol/L (22-29); Chloride 108 mmol/L (96-108); Cholesterol 250 mg/dL (<200); Estimated Glomerular Filt Rate > 60; Glucose Fasting 92 mg/dL (60-99); HDL Cholesterol 48 mg/dL (>40); LDL Cholesterol Calculated 170 mg/dL (<100); Potassium 4.3 mmol/L (3.3-5.1); Sodium 142 mmol/L (135-145); Total Protein 6.7 g/dL (6.5-8.0); Triglycerides 161 mg/dL (<150)
== END 2024-06-18 08:29 | disposition home or self-care (01) ==
LOC: HO.LAB 08:28
PROVIDERS: PCP Internal Medicine; Visit Provider Internal Medicine
DX: E78.00 Pure hypercholesterolemia, unspecified (principal)
CPT/HCPCS: 36415; 80053; 80061; 85025

== ENCOUNTER 2024-07-08 10:21 | Outpatient (REF) | payer MEDICARE, OTHER, SELFPAY ==
--- OUTSIDE RECORDS SUMMARY | 2024-07-10 14:30 | XMS_ITS ---
Author Organization [facility] Address [address] [place], [place] [id number] Care Team Providers Care Multimedia Editor Name Role Phone Leo Herrera Primary Care Provider REASON FOR VISIT 6 month f/u Encounters Encounter Location Date Provider Diagnosis [facility] Her[facility] DO, [facility] [address] [place] [phone] 07/05/2024 Leo Herrera PLAN OF TREATMENT Next Appt Details Provider Name:Leo eugene, 07/12/2024 11:00:00 AM, [address] [place], [place], [phone],
--- OUTSIDE RECORDS SUMMARY | 2024-07-10 14:31 | XMS_ITS ---
Author Organization [facility] Herrera DO [facility] Address [address] [place], [place] [id number] Care Team Providers Care Utilization Review Nurse Name Role Phone Leo Herrera Primary Care Provider [phone] REASON FOR VISIT 6 month f/u Encounters Encounter Location Date Provider Diagnosis [facility] Herrera [facility], [facility] [address] [place] [id number] 06/26/2024 Leo Herrera PLAN OF TREATMENT Next Appt Details Provider Name:Leo eugene, 07/12/2024 11:00:00 AM, [address] [place], [place], [phone],
--- OUTSIDE RECORDS SUMMARY | 2024-07-10 14:31 | XMS_ITS | Patient Health Record ---
Author Organization [facility] Address [address] [place] [address] Care Team Providers Care Telephone Switchboard Operator Name Role Phone Leo Herrera DO Primary Care Provider Unavail able Leo Latham Unavailable [phone] ALLERGIES Allergen (clinical drug ingredient) Drug/Non Drug Allergy documented on EMR Reaction Allergy Type Onset Date Status Sulfa Unknown Drug Allergy Active Penicillin Unknown Drug Allergy Active erythromycin Erythromycin Unknown Drug Allergy A ctive REASON FOR REFERRAL No Information MEDICATIONS Medication SIG (Take, Route, Fr equency, Duration) Notes Start Date End Date Status Multi Vitamin/Minerals Orally Active Fish Oil 1000 MG 1 capsule Orally Once a day Active Aspir-81 81 MG 1 tablet Orally Once a day Active Vitamin D Active Advil 200 MG 1 capsule as needed Orally bid Active Cholest Care 500 MG Orally Active Vitamin B12 Active Tylenol 325 MG 1 tablet as needed O rally every 6 hrs Active PreserVision AREDS 2 Active IMMUNIZATIONS Vaccine Route Administration Date Status Comme nts Influenza Unknown 04/20/2020 Administered SOCIAL HISTORY Sex Assigned At : Social History Observation Description Sex Assigned At Unknown PROBLEMS Problem Type ICD Code Onset Dates Problem Status W/U Status Risk SNOMED Code Notes Problem Encounter for screening for malignant neoplasm of colon (Z12.11) Active confirmed Screening for malignant neoplasm of colon (191888316) Problem History of adenomatous polyp of colon (Z86.010) Active confirmed History of adenomatous polyp of colon (865741718) Problem Preprocedural examination (Z01.818) Active confirmed Preprocedural examination (270301695099811 ) Encounters Encounter Location Date Provider Diagnosis [facility] [address] [place] [address] 05/31/2024 Leo Latham PLAN OF TREATMENT Future Test Test Name Order Date COLONOSCOPY 04/29/2015 COLONOSCOPY 08/27/2020 Insurance Providers Payer Name Payer Address Payer Phone Subscriber Number Group Number Insured Name Patient Relationship to Insured Coverage Start Date Coverage End Date [facility] [address] [facility] [place] [phone] [id number] JOVANNY VIRAMONTES Self - patient is the insured MEDICAL (GENERAL) HISTORY Medical History History ICD Code 1 tubular adenoma remioved i n 2000--negative colonoscopies in 2005 and on 07-16-2010 Denies ID,DM,CVA,Lung disease,renal dise ase Neuropathy in feet Allergies Colonoscopy 07/2015-1 small tubular adeno ma removed Surgical History Surgery Date(Month/Year) Shoulder surgery-left BTL Back surgery--lumbar disc-Dr. Phillips 09/19 15
--- OUTSIDE RECORDS SUMMARY | 2024-07-10 14:31 | XMS_ITS ---
Author Organization [facility] Address [address] [place] [address] Care Team Providers Care Special Warfare Combatant Crewman Name Role Phone Leo Herrera DO Primary Care Provider Unavail able Leo Latham Unavailable [phone] REASON FOR VISIT hemmorhoids Encounters Encounter Location Date Provider Diagnosis [facility] [address] [place] [address] 05/31/2024 Leo Latham PLAN OF TREATMENT No Information
--- OUTSIDE RECORDS SUMMARY | 2024-07-10 14:31 | XMS_ITS | Patient Health Record ---
Author Organization Leo Herrera DO, [facility] Address [address] [place] [phone] Care Team Providers Care Adoption Manager Name Role Phone Leo Herrera Primary Care Provider [phone] ALLERGIES Allergen (clinical drug ingredient) Drug/Non Drug Allergy documented on EMR Reaction Allergy Type Onset Date Status BuSpar blurred vision and weight gain Drug Allergy Active Penicillin hives Drug Allergy Active sulfa hives, swollen eyes Drug Allergy Active fluoxetine Prozac rash Drug Allergy Active Luvox CR swelling Drug Allergy Active erythromycin Erythromycin hives Drug Allergy A ctive Substance with serotonin re-uptake inhibitor mechanism of action (substance) SSRI's (uncoded) swollen tongue Allergy Active RESULTS Component Value Reference Range Notes Urine Culture Reviewed date:09/27/2023 11:51:18 AM Interpretation:Abnormal Performing Lab:[facility], [address] [place] [phone] Notes/Report: Urine Culture Report Result Urine Culture < 10,000 cfu/ml Urinalysis Reviewed date:09/26/2023 02:26:00 PM Interpretation:Negative Performing Lab:[facility], [address] [place] [phone] Notes/Report: Color Urine Yellow Appearance Urine Clear PH 7.0 5.0-9.0 Glucose Urine UA Negative Negative mg/dL Urine Blood Negative Negative Specific [place] - Urine 1.015 1.005-1.025 Urine Protein Negative Neg-Trace mg/dL Urine Ketones Negative Negative mg/dL Nitrite Urine Negative Negative Leukocyte Esterase Urine Negative Negative Complete Blood Count Auto Di ff Reviewed date:12/27/2023 09:32:25 AM Interpretation:Normal Performing Lab:[facility], [address] [place] [phone] Notes/Report: White Blood Count 6.1 4.8-10.8 X10*3/uL Red Blood Count 5.23 4.20-5.50 X10*6/uL Hemoglobin 15.2 12.0-16.0 g/dl Hematocrit 47.0 37.0-47.0 % Mean Corpuscular Volume 89.9 80.0-98.0 fL Mean Corpuscular Hemoglobin 29.1 27.0-33.0 pg Mean Corpuscular HGB Conc 32.3 31.0-35.0 g/dl Red Cell Distribution Width 14.8 11.0-16.0 % Platelet Count 255 160-400 X10*3/uL Mean Platelet Volume 9.4 9.4-12.3 fL Neutrophils Percent Auto 63.1 45-73 % Imm Gran Pct Auto 0.5 0.0-0.4 % Lymphocytes Percent Auto 25.5 20-40 % Monocytes Percent Auto 6.9 2-11 % Eosinophils Percent Auto 2.8 0-4 % Basophils Percent Auto 1.2 0-2 % NRBC Pct Auto 0.0 0.0-0.2 /100WBC Neutrophils Absolute Auto 3.8 2.0-8.3 x10*3/u L Imm Gran Abs Auto 0.03 0.00-0.03 X10*3/uL Lymphocytes Absolute Auto 1.6 1.2-4.9 X10*3/u L Monocytes Absolute Auto 0.4 0.1-1.2 X10*3/uL Eosinophils Absolute Auto 0.2 0.0-0.4 X10*3/u L Basophils Absolute Auto 0.1 0.0-0.2 X10*3/uL NRBC Abs Auto 0.000 0.0-0.012 X10*3/uL Comprehensive [place]. Panel Fa st Reviewed date:12/27/2023 10:14:18 AM Interpretation:Abnormal Performing Lab:[facility], [address] [place] [phone] Notes/Report: Sodium 141 135-145 mmol/L Potassium 4.5 3.3-5.1 mmol/L Chloride 107 96-108 mmol/L Carbon Dioxide 27 22-29 mmol/L Anion Gap 12 12-20 Blood Urea Nitrogen 22 9-16 mg/dL Creatinine 0.84 0.5-1.4 mg/dL Estimated Glomerular Filt Rate > 60 NOTE: For -[place] individuals, multiply the result by 1.210. Chronic Kidney Disease: Estimated GFR < 60 mL/min/1.73m2 Severe Kidney Disease: Estimated GFR < 15 mL/min/1.73m2 Glucose Fasting 95 60-99 mg/dL Calcium 9.2 8.4-10.2 mg/dL Bilirubin Total 0.5 0.0-1.0 mg/dL Aspartate Amino Transferase 21 5-31 U/L Alanine Aminotransferase 16 0-31 U/L Total Protein 7.0 6.5-8.0 g/dL Albumin Level 4.2 3.5-5.0 g/dL Alkaline Phosphatase 70 39-117 U/L Lipid Panel Reviewed date:12/27/2023 10:16:41 AM Interpretation:Abnormal Performing Lab:[facility], [address] [place] [phone] Notes/Report: Triglycerides 156 <150 mg/dL Desirable Triglyceride: less than 150 mg/dL Borderline High Triglyceride 150-199 mg/dL High Triglyceride: 200-499 mg/dL Very High Triglyceride: greater than or equal to 5OO mg/dL Cholesterol 259 <200 mg/dL Desirable Cholesterol: less than 200 mg/dL Borderline High Cholesterol: 200-239 mg/dL High Cholesterol: greater than 239 mg/dL LDL Cholesterol Calculated 174 <100 mg/dL Desirable LDL: less than 100 mg/dL Near Optimal/Above Optimal LDL: 110-129 mg/dL Borderline High LDL: 130-159 mg/dL High LDL: 160-189 mg/dL Very High LDL: greater than or equal to 190 mg/dL HDL Cholesterol 54 >40 mg/dL Desirable HDL: greater than 40 mg/dL Note: This HDL assay may give artificially low results in patients with liver disease. Vitamin D 25-OH Total Reviewed date:12/27/2023 10:14:18 AM Interpretation:Normal Performing Lab:[address] [phone] Notes/Report: Vitamin D 25-OH Total 54.7 >30 ng/mL Health Based Reference Values* < 20 ng/mL Deficient 20-30 ng/mL Insufficient > 30 ng/mL Sufficient *Holick MF. N Engl J Med. 2007;357:266-280 Care must be taken in interpreting Vitamin D results from different laboratories and methodologies. Published data demonstrated that results from patients undergoing hemodialysis may show a negative bias when tested with various automated 25-OH vitamin D assays when compared to LC-MS/MS. When testing samples from patients whose predominant form of Vitamin D is Vitamin D2, such as patients receiving Vitamin D2 supplementation, results that are subtherapeutic should be confirmed with another method such as LC-MS/MS. Thyroid Stimulating Hormone Reviewed date:12/27/2023 10:14:18 AM Interpretation:Normal Performing Lab:[facility], [address] [place] [phone] Notes/Report: Thyroid Stimulating Hormone 2.14 0.32-4.0 uIU/mL TSH 3rd Generation ([facility]) XR chest 2V Reviewed date:2024 02:00:35 PM Interpretation:Negative Performing Lab: Notes/Report: [address] [address] XRay Report Signed Patient: Kit Guillory MR#: [id number] : 1955 Acct:[id number] Age/Sex: 68 / F ADM Date: 12/27/23 Loc: HO.LAB Attending Dr: Leo Herrera DO Ordering Physician: Leo Herrera DO Date of Service: 12/27/23 Procedure(s): XR chest 2V Accession Number(s): [id number] cc: Leo Herrera DO EXAMINATION: XR CHEST CLINICAL INFORMATION: Hypercholesterolemia, interstitial cystitis. COMPARISON: October 29, 2020 TECHNIQUE: 2 views of the chest were obtained. FINDINGS: The lungs are well inflated. There is no gross pneumothorax. Heart size is normal. S-shaped thoracolumbar scoliosis with multilevel degenerative changes. No pleural effusion. No new focal consolidation to suggest pneumonia. XR/XR chest 2V IMPRESSION: No evidence of pneumonia. Dictated By: Berkley Bolden MD Signed By: <Electronically signed by Berkley Bolden MD in OV> 01/09/24 1346 DD/ 0902 TD/TT: Retail Sales Advisor: XR sacroiliac joint 1-2V Reviewed date:05/09/2024 12:45:11 PM Interpretation:Abnormal Performing Lab: Notes/Report: [address] [address] XRay Report Signed Patient: Kit Guillory MR#: [id number] : 1955 Acct:[id number] Age/Sex: 69 / F ADM Date: 05/09/24 Loc: HO.XRAY Attending Dr: Leo Herrera DO Ordering Physician: Leo Herrera DO Date of Service: 05/09/24 Procedure(s): XR sacroiliac joint 1-2V Accession Number(s): [id number] cc: Leo Herrera DO EXAMINATION: XR LUMBAR SPINE XR PELVIS XR SACRUM/COCCYX XR SACROILIAC JOINTS CLINICAL INFORMATION: Lower back pain. COMPARISON: None available. TECHNIQUE: AP, lateral, and coned-down views of the lumbar spine. AP view the pelvis. AP and lateral views of the sacrum and coccyx. Bilateral Judet views of the sacroiliac joints. FINDINGS: Lumbar Spine: Normal vertebral body alignment. The lumbar lordosis is maintained. No acute fracture or subluxation. No loss of vertebral body height. Loss of intervertebral disc height with endplate osteophytes throughout the lumbar spine, most severe at L5-S1. Prominent bilateral facet arthropathy throughout the lower lumbar spine. No concerning lytic or blastic osseous lesion. No abnormal soft tissue calcification. Pelvis: No acute fracture or dislocation. Mild bilateral hip joint space narrowing with small marginal osteophytes. No osseous erosion. No evidence of femoral head avascular necrosis. No abnormal soft tissue calcification. Sacrum/Coccyx: No acute fracture or subluxation. No concerning lytic or blastic osseous lesion. No abnormal soft tissue calcification. Sacral Iliac Joints: Mild bilateral sacral iliac joint space narrowing with tiny marginal osteophytes. No periarticular erosion. No concerning lytic or blastic osseous lesion. No abnormal soft tissue calcification. XR/XR sacroiliac joint 1-2V IMPRESSION: 1. Multilevel degenerative disc disease throughout the lumbar spine, most severe at L5-S1. Prominent lower lumbar spine facet arthropathy. 2. Mild bilateral sacroiliac osteoarthritis. 3. Mild bilateral hip osteoarthritis. 4. No acute fracture or dislocation. Electronically signed by: Moise Yi MD 05/09/2024 11:24 AM EDT RP Dictated By: Moise Yi MD Signed By: <Electronically signed by Moise Yi MD in OV> 05/09/24 1124 DD/ TD/TT: 05/09/24 0855 Retail Sales Advisor: SR XR pelvis 1-2V Reviewed date:05/09/2024 12:44:42 PM Interpretation:Abnormal Performing Lab: Notes/Report: [address] [address] XRay Report Signed Patient: Kit Guillory MR#: [id number] : 1955 Acct:[id number] Age/Sex: 69 / F ADM Date: 05/09/24 Loc: HO.XRAY Attending Dr: Leo Herrera DO Ordering Physician: Leo Herrera DO Date of Service: 05/09/24 Procedure(s): XR pelvis 1-2V Accession Number(s): [id number] cc: Leo Herrera DO EXAMINATION: XR LUMBAR SPINE XR PELVIS XR SACRUM/COCCYX XR SACROILIAC JOINTS CLINICAL INFORMATION: Lower back pain. COMPARISON: None available. TECHNIQUE: AP, lateral, and coned-down views of the lumbar spine. AP view the pelvis. AP and lateral views of the sacrum and coccyx. Bilateral Judet views of the sacroiliac joints. FINDINGS: Lumbar Spine: Normal vertebral body alignment. The lumbar lordosis is maintained. No acute fracture or subluxation. No loss of vertebral body height. Loss of intervertebral disc height with endplate osteophytes throughout the lumbar spine, most severe at L5-S1. Prominent bilateral facet arthropathy throughout the lower lumbar spine. No concerning lytic or blastic osseous lesion. No abnormal soft tissue calcification. Pelvis: No acute fracture or dislocation. Mild bilateral hip joint space narrowing with small marginal osteophytes. No osseous erosion. No evidence of femoral head avascular necrosis. No abnormal soft tissue calcification. Sacrum/Coccyx: No acute fracture or subluxation. No concerning lytic or blastic osseous lesion. No abnormal soft tissue calcification. Sacral Iliac Joints: Mild bilateral sacral iliac joint space narrowing with tiny marginal osteophytes. No periarticular erosion. No concerning lytic or blastic osseous lesion. No abnormal soft tissue calcification. XR/XR pelvis 1-2V IMPRESSION: 1. Multilevel degenerative disc disease throughout the lumbar spine, most severe at L5-S1. Prominent lower lumbar spine facet arthropathy. 2. Mild bilateral sacroiliac osteoarthritis. 3. Mild bilateral hip osteoarthritis. 4. No acute fracture or dislocation. Electronically signed by: Moise Yi MD 05/09/2024 11:24 AM EDT RP Dictated By: Moise Yi MD Signed By: <Electronically signed by Moise Yi MD in OV> 05/09/24 1124 DD/ TD/TT: 05/09/2455 Retail Sales Advisor: XR lumbar spine 2-3V Reviewed date:05/09/2024 12:44:09 PM Interpretation:Abnormal Performing Lab: Notes/Report: [place] [address] XRay Report Signed Patient: Kit Guillory MR#: [id number] : 1955 Acct:[id number] Age/Sex: 69 / F ADM Date: 05/09/24 Loc: JACK Attending Dr: Leo Herrera DO Ordering Physician: Leo Herrera DO Date of Service: 05/09/24 Procedure(s): XR lumbar spine 2-3V Accession Number(s): [id number] cc: Leo Herrera DO EXAMINATION: XR LUMBAR SPINE XR PELVIS XR SACRUM/COCCYX XR SACROILIAC JOINTS CLINICAL INFORMATION: Lower back pain. COMPARISON: None available. TECHNIQUE: AP, lateral, and coned-down views of the lumbar spine. AP view the pelvis. AP and lateral views of the sacrum and coccyx. Bilateral Judet views of the sacroiliac joints. FINDINGS: Lumbar Spine: Normal vertebral body alignment. The lumbar lordosis is maintained. No acute fracture or subluxation. No loss of vertebral body height. Loss of intervertebral disc height with endplate osteophytes throughout the lumbar spine, most severe at L5-S1. Prominent bilateral facet arthropathy throughout the lower lumbar spine. No concerning lytic or blastic osseous lesion. No abnormal soft tissue calcification. Pelvis: No acute fracture or dislocation. Mild bilateral hip joint space narrowing with small marginal osteophytes. No osseous erosion. No evidence of femoral head avascular necrosis. No abnormal soft tissue calcification. Sacrum/Coccyx: No acute fracture or subluxation. No concerning lytic or blastic osseous lesion. No abnormal soft tissue calcification. Sacral Iliac Joints: Mild bilateral sacral iliac joint space narrowing with tiny marginal osteophytes. No periarticular erosion. No concerning lytic or blastic osseous lesion. No abnormal soft tissue calcification. XR/XR lumbar spine 2-3V IMPRESSION: 1. Multilevel degenerative disc disease throughout the lumbar spine, most severe at L5-S1. Prominent lower lumbar spine facet arthropathy. 2. Mild bilateral sacroiliac osteoarthritis. 3. Mild bilateral hip osteoarthritis. 4. No acute fracture or dislocation. Electronically signed by: Moise Yi MD 05/09/2024 11:24 AM EDT RP Dictated By: Moise Yi MD Signed By: <Electronically signed by Moise Yi MD in OV> 05/09/24 1124 DD/ TD/TT: 05/09/24 0855 Retail Sales Advisor: SR XR sacrum coccyx min 2V Reviewed date:05/09/2024 12:46:46 PM Interpretation:Normal Performing Lab: Notes/Report: [address] [address] XRay Report Signed Patient: Kit Guillory MR#: [id number] : 1955 Acct:[id number] Age/Sex: 69 / F ADM Date: 05/09/24 Loc: HO.XRAY Attending Dr: Leo Herrera DO Ordering Physician: Leo Herrera DO Date of Service: 05/09/24 Procedure(s): XR sacrum coccyx min 2V Accession Number(s): [id number] cc: Leo Herrera DO EXAMINATION: XR LUMBAR SPINE XR PELVIS XR SACRUM/COCCYX XR SACROILIAC JOINTS CLINICAL INFORMATION: Lower back pain. COMPARISON: None available. TECHNIQUE: AP, lateral, and coned-down views of the lumbar spine. AP view the pelvis. AP and lateral views of the sacrum and coccyx. Bilateral Judet views of the sacroiliac joints. FINDINGS: Lumbar Spine: Normal vertebral body alignment. The lumbar lordosis is maintained. No acute fracture or subluxation. No loss of vertebral body height. Loss of intervertebral disc height with endplate osteophytes throughout the lumbar spine, most severe at L5-S1. Prominent bilateral facet arthropathy throughout the lower lumbar spine. No concerning lytic or blastic osseous lesion. No abnormal soft tissue calcification. Pelvis: No acute fracture or dislocation. Mild bilateral hip joint space narrowing with small marginal osteophytes. No osseous erosion. No evidence of femoral head avascular necrosis. No abnormal soft tissue calcification. Sacrum/Coccyx: No acute fracture or subluxation. No concerning lytic or blastic osseous lesion. No abnormal soft tissue calcification. Sacral Iliac Joints: Mild bilateral sacral iliac joint space narrowing with tiny marginal osteophytes. No periarticular erosion. No concerning lytic or blastic osseous lesion. No abnormal soft tissue calcification. XR/XR sacrum coccyx min 2V IMPRESSION: 1. Multilevel degenerative disc disease throughout the lumbar spine, most severe at L5-S1. Prominent lower lumbar spine facet arthropathy. 2. Mild bilateral sacroiliac osteoarthritis. 3. Mild bilateral hip osteoarthritis. 4. No acute fracture or dislocation. Electronically signed by: Moise Yi MD 05/09/2024 11:24 AM EDT Dictated By: Moise Yi MD Signed By: <Electronically signed by Moise Yi MD in OV> 05/09/24 1124 DD/ 0831 TD/TT: 05/09/24 0855 Retail Sales Advisor: Complete Blood Count Auto Di ff Reviewed date:06/18/2024 09:25:38 AM Interpretation:Normal Performing Lab:[facility], [address] [place] [phone] Notes/Report: White Blood Count 5.3 4.8-10.8 X10*3/uL Red Blood Count 4.87 4.20-5.50 X10*6/uL Hemoglobin 14.5 12.0-16.0 g/dl Hematocrit 44.3 37.0-47.0 % Mean Corpuscular Volume 91.0 80.0-98.0 fL Mean Corpuscular Hemoglobin 29.8 27.0-33.0 pg Mean Corpuscular HGB Conc 32.7 31.0-35.0 g/dl Red Cell Distribution Width 14.3 11.0-16.0 % Platelet Count 254 160-400 X10*3/uL Mean Platelet Volume 8.9 9.4-12.3 fL Neutrophils Percent Auto 58.9 45-73 % Imm Gran Pct Auto 0.4 0.0-0.4 % Lymphocytes Percent Auto 28.4 20-40 % Monocytes Percent Auto 8.9 2-11 % Eosinophils Percent Auto 2.3 0-4 % Basophils Percent Auto 1.1 0-2 % NRBC Pct Auto 0.0 0.0-0.2 /100WBC Neutrophils Absolute Auto 3.1 2.0-8.3 x10*3/u L Imm Gran Abs Auto 0.02 0.00-0.03 X10*3/uL Lymphocytes Absolute Auto 1.5 1.2-4.9 X10*3/u L Monocytes Absolute Auto 0.5 0.1-1.2 X10*3/uL Eosinophils Absolute Auto 0.1 0.0-0.4 X10*3/u L Basophils Absolute Auto 0.1 0.0-0.2 X10*3/uL NRBC Abs Auto 0.000 0.0-0.012 X10*3/uL Comprehensive [place]. Panel Fa st Reviewed date:06/18/2024 12:41:55 PM Interpretation:Abnormal Performing Lab:[facility], [address] [place] [phone] Notes/Report: Sodium 142 135-145 mmol/L Potassium 4.3 3.3-5.1 mmol/L Chloride 108 96-108 mmol/L Carbon Dioxide 30 22-29 mmol/L Anion Gap 8 12-20 Blood Urea Nitrogen 18 9-16 mg/dL Creatinine 0.76 0.5-1.4 mg/dL Estimated Glomerular Filt Rate > 60 Chronic Kidney Disease: Estimated GFR < 60 mL/min/1.73m2 Severe Kidney Disease: Estimated GFR < 15 mL/min/1.73m2 Glucose Fasting 92 60-99 mg/dL Calcium 9.3 8.4-10.2 mg/dL Bilirubin Total 0.3 0.0-1.0 mg/dL Aspartate Amino Transferase 24 5-31 U/L Alanine Aminotransferase 19 0-31 U/L Total Protein 6.7 6.5-8.0 g/dL Albumin Level 4.0 3.5-5.0 g/dL Alkaline Phosphatase 63 39-117 U/L Lipid Panel Reviewed date:06/18/2024 12:42:17 PM Interpretation:Abnormal Performing Lab:[facility], [address] [place] [phone] Notes/Report: Triglycerides 161 <150 mg/dL Desirable Triglyceride: less than 150 mg/dL Borderline High Triglyceride 150-199 mg/dL High Triglyceride: 200-499 mg/dL Very High Triglyceride: greater than or equal to 5OO mg/dL Cholesterol 250 <200 mg/dL Desirable Cholesterol: less than 200 mg/dL Borderline High Cholesterol: 200-239 mg/dL High Cholesterol: greater than 239 mg/dL LDL Cholesterol Calculated 170 <100 mg/dL Desirable LDL: less than 100 mg/dL Near Optimal/Above Optimal LDL: 110-129 mg/dL Borderline High LDL: 130-159 mg/dL High LDL: 160-189 mg/dL Very High LDL: greater than or equal to 190 mg/dL HDL Cholesterol 48 >40 mg/dL Desirable HDL: greater than 40 mg/dL Note: This HDL assay may give artificially low results in patients with liver disease. REASON FOR REFERRAL Reason Dysuria Diagnosis 1 Dysuria (R30.0) Referral Organization Leo Tavares FACP Referring Provider First Name Leo Referring Provider Last Name Sharon Referring Provider Speciality Internal edicine Referred Provider Trent Lopez Referred Provider Specialty Urology General Notes Erika James 4 11:57:10 AM EST > Referral faxed, appointment with anyone in the practice. Referral Priority Routine Referral Appointment Date 09/28/2023 Reason Right shoulder pain Diagnosis 1 Pain in right should er (M25.511) Referral Organization Leo Tavares FACP Referring Provider First Name Leo Referring Provider Last Name Sharon Referring Provider Speciality Internal M edicine Referred Provider Latha Thomas Referred Provider Specialty Orthopedic S urgery General Notes Laura Nino 024 02:10:36 PM EDT > referral faxed; specialist's office will call patient to schedule appointment; patient aware. Clinical Notes Laura Nino 024 02:10:20 PM EDT > TELEPHONE ENCOUNTER 03/05/2024:, Right shoulder joint pain, worse when pressure applied (i.e. sleeping on the right side) X 6-7 weeks. Full ROM. Referral Priority Routine Referral Appointment Date 03/30/2024 MEDICATIONS Medication SIG (Take, Route, Frequency, Duration) Notes Start Date End Date Status Tolterodine Tartrate ER 2 MG 1 capsule Orally Once a day Active Vagifem 10 MCG 1 tablet Vaginal Two times a Week Active Fish Oil 1000 MG 1 capsule Orally Onc e a day Active Aspirin Adult Low Dose 81 MG 1 tablet Orally Once a day Active Probiotic 250 MG 1 capsule Orally Onc e a day Active PreserVision AREDS 2 - 1 capsule Orally Once a day Active valACYclovir HCl 1 GM 2 tablets Orally T wice a day for 1 days 2024 Active Vitamin D-3 1000 UNIT 1 capsule Orally O nce a day Active Multivitamin - 1 tablet Orally Once a day Active Paxlovid (300/100) 20 x 150 MG & 10 x 100MG 3 tablets Orally Twice a day for 5 days 02/14/2024 Active IMMUNIZATIONS Vaccine Route Administration Date Status Comme nts Influenza Unknown 07/07/2011 Administered Influenza Unknown 04/25/2014 Administered Zoster Vaccine Unknown 06/07/2014 Administered Influenza Quad IM Intramuscular 04/28/2015 Administered Influenza High Dose IM Intramuscular 05/04/2018 Administer ed Influenza Quad Unknown 04/16/2016 Administered Influenza Quad Unknown 04/27/2017 Administered Influnza High Dose Quad Unknown 04/15/2021 Administered COVID-19 Moderna Vaccine Unknown 06/03/2021 Administere d Shingrix Unknown 10/04/2021 Administered Flu-aIIV4 Unknown 04/01/2020 Administered COVID-19 Pfizer BioNTech Unknown 09/30/2020 Administere d Influenza High Dose Unknown 04/04/2019 Administered Shingrix Unknown 01/10/2022 Administered TDaP Unknown 11/19/2018 Administered COVID-19 Moderna Vaccine Unknown 11/18/2021 Administere d COVID-19 Pfizer BioNTech Unknown 09/04/2020 Administere d COVID-19 Moderna Vaccine Unknown 10/02/2020 Administere d COVID-19 Moderna Vaccine Unknown 09/07/2020 Administere d COVID-19 Moderna Bivalent Unknown 05/06/2022 Administer ed Influnza High Dose Quad Unknown 03/27/2022 Administered Influenza High Dose Unknown 04/02/2024 Administered Hepatitis B (20 and more) Unknown 03/11/2023 Administer ed Influnza High Dose Quad Unknown 03/11/2023 Administered SOCIAL HISTORY Tobacco Use: Social History Observation Description Date Details (start date - stop date) Never Smoker NA - NA Sex Assigned At : Social History Observation Description Sex Assigned At Unknown Tobacco Use/Smoking Question Answer Notes Patient is a nonsmoker Additional Findings: Tobacco Non-User Cu rrent non-smoker, currently using no form of tobacco Alcohol Screen Question Answer Notes Did you have a drink containing alcohol in the p ast year? No Points 0 Interpretation Negative PROBLEMS Problem Type ICD Code Onset Dates Problem Status W/U Status Risk SNOMED Code Notes Problem Pain in right should er (M25.511) Active confirmed Pain of right shoulder region (finding) (1651993933) Problem Neuropathy (G62.9) Active confirmed 386 415642 Problem Memory loss (R41.3) Active confirmed 48 384554 Problem Hypercholesterolemia (E78.00) Active confirmed 49886717 Problem Tinnitus of both ear s (H93.13) Active confirmed 8504483952306 Problem Mallet finger of lef t hand (M20.012) Active confirmed 51752289 Problem Interstitial cystiti s (N30.10) Active confirmed 256459325 VITAL SIGNS Blood pressure diastolic 60 mm Hg 11/21/2023 Height 67 in 11/21/2023 Blood pressure systolic 110 mm Hg 11/21/2023 Weight 191 lbs 11/21/2023 BMI 29.91 kg/m2 11/21/2023 Encounters Encounter Location Date Provider Diagnosis Leo Herrera DO, [facility] [address] [place], [place] [phone] 07/25/2023 Leo Herrera DO, [facility] [address] [place], [place] [id number] 08/01/2023 Leo Herrera DO, [facility] [address] [place], [place] [id number] 09/12/2023 Leo Herrera DO, [facility] [address] [place], [place] [phone] 11/21/2023 Leo Herrera Encounter for genera l adult medical examination without abnormal findings Z00.00 ; Hypercholesterolemia E78.00 and Interstitial cystitis N30.10 Leo Herrera DO, [address] [id number] 05/22/2024 Leo Herrera DO, [address] [id number] 09/19/2023 Leo Herrera DO, [address] [id number] 09/25/2023 Leo Herrera Dysuria R30.0 Leo Herrera DO, [address] [id number] 09/26/2023 Leo Herrera DO, [address] [address] [id number] 09/27/2023 Leo Herrera DO, [address] [id number] 10/10/2023 Leo Herrera DO, [address] [id number] 2024 Leo Herrera DO, [address] [id number] 01/10/2024 Leo Herrera DO, [address] [id number] 02/14/2024 Leo Herrera DO, [address] [id number] 03/05/2024 Leo Herrera DO, [address] [id number] 05/07/2024 Leo Herrera Low back pain, unspe cified back pain laterality, unspecified chronicity, unspecified whether sciatica present M54.50 Leo Herrera DO, [address] [id number] 05/10/2024 Leo Herrera DO, [address] [id number] 05/31/2024 Leo Herrera Hypercholesterolemia E78.00 Leo Herrera DO, [address] [id number] 06/26/2024 Leo Herrera DO, [address] [id number] 06/26/2024 Leo Herrera DO, [address] [id number] 07/05/2024 Leo Herrera DO, [facility] [address] [place], [place] [id number] 07/31/2023 Leo Herrera DO, [facility] [address] [place], [place] [id number] 05/07/2024 Leo Herrera DO, [address] [id number] 05/07/2024 Leo Wisdomman ASSESSMENTS Encounter Date Diagnosis Assessment Notes Treatment Notes Treatment Clinical Notes 11/21/2023 Encounter for genera l adult medical examination without abnormal findings (ICD-10 - Z00.00) 11/21/2023 Hypercholesterolemia (ICD-10 - E78.00) 09/25/2023 Dysuria (ICD-10 - R30.0) 05/07/2024 Low back pain, unspe cified back pain laterality, unspecified chronicity, unspecified whether sciatica present (ICD-10 - M54.50) 05/31/2024 Hypercholesterolemia (ICD-10 - E78.00) 11/21/2023 Interstitial cystiti s (ICD-10 - N30.10) PLAN OF TREATMENT Next Appt Details Provider Name:Leo Henedrson valorie, 07/12/2024 11:00:00 AM, [address] [place] [address], [phone], Insurance Providers Payer Name Payer Address Payer Phone Subscriber Number Group Number Insured Name Patient Relationship to Insured Coverage Start Date Coverage End Date [facility] [address] [place] [phone] [id number] Kit Ferrera Self - patient is the insured MEDICAL (GENERAL) HISTORY Medical History History ICD Code hypercholesterolemia low back pain urinary tract infection interstitial cystitis tubular adenoma toxemia of anxiety Neuropathy herniated lumbar disc Surgical History Surgery Date(Month/Year) wisdom teeth extraction section tubal ligation shoulder arthroscopy cataract-lens implants, OU lumbar disc surgery
--- OUTSIDE RECORDS SUMMARY | 2024-07-10 14:31 | XMS_ITS ---
Author Organization Leo Herrera DO, FACP Address [address] [place], [place] [id number] Care Team Providers Care In Home Sales Representative Name Role Phone Leo Herrera Primary Care Provider [phone] REASON FOR VISIT FYI Encounters Encounter Location Date Provider Diagnosis Leo Herrera DO, FACP [address] [place], [place] [phone] 06/26/2024 Leo Herrera PLAN OF TREATMENT Next Appt Details Provider Name:Leo eugene, 07/12/2024 11:00:00 AM, [address] [place], [place], [phone],
== END 2024-07-08 10:22 | disposition home or self-care (01) ==
LOC: HO.XRAY 10:21
PROVIDERS: PCP Internal Medicine; Visit Provider Physician Assistant
DX: M70.62 Trochanteric bursitis, left hip (principal)
CPT/HCPCS: 73502

== ENCOUNTER 2024-07-16 09:11 | Outpatient (REF) | payer MEDICARE, OTHER, SELFPAY ==
--- NOTE | ~2024-07-16 | XR_ITS ---
EXAMINATION: XR CHEST CLINICAL INFORMATION: H/O recent pneumonia one month ago COMPARISON: 12/27/2023, 10/29/2020 TECHNIQUE: 2 views of the chest were obtained. FINDINGS: There is no gross pneumothorax. Lungs are well-inflated. Mild dextroscoliosis of the thoracic spine with multilevel degenerative changes. Heart size is normal.. No significant pleural effusion. No new focal consolidation. XR/XR chest 2V IMPRESSION: No new focal consolidation. This study was presented today to July 16, 2024 for interpretation. Stat results provided at this time as requested by referring provider. Electronically signed by: Berkley Bolden MD 07/16/2024 11:49 AM LEONARDO
== END 2024-07-16 09:12 | disposition home or self-care (01) ==
LOC: HO.XRAY 09:11
PROVIDERS: PCP Internal Medicine; Visit Provider Internal Medicine
DX: Z87.01 Personal history of pneumonia (recurrent) (principal)
CPT/HCPCS: 71046

== ENCOUNTER 2024-08-21 11:33 | Outpatient (REF) | payer MEDICARE, OTHER, SELFPAY ==
[2024-08-21 12:40] LABS: Appearance Urine Cloudy; Color Urine Dark Yellow; Glucose Urine UA Negative (Negative); Leukocyte Esterase Urine Small (1+) (Negative); Nitrite Urine Negative (Negative); PH 5.5 (5.0-9.0); Specific Gravity - Urine >= 1.030 (1.005-1.025); UMIC TRIGGER UACC YES; Urine Blood Negative (Negative); Urine Ketones Trace mg/dL (Negative); Urine Protein Negative (Neg-Trace)
[2024-08-21 12:56] LABS: Bacteria Urine 1+ (None Seen); Hyaline Casts Urine 0-2 /LPF (0-2); RBC Urine 0-2 /HPF (0-2); UACC Culture Trigger YES
--- OUTSIDE RECORDS SUMMARY | 2024-08-21 13:18 | XMS_ITS | Continuity of Care Document ---
Author Organization [facility] Address [address] [place] [address]- Care Team Providers Care Fuel Cell Repairer Name Role Phone Leo Hrerera DO Primary Care Physician Encounter [facility] Date(s): 07/17/24 - 08/16/24 [facility] [address] [place] [address]- Encounter Type: Triage Allergies, Adverse Reactions, Alerts Substance Criticality Severity Reaction Reaction Severity Status erythromycin Active sulfADIAZINE Active penicillins Active Medications cyclobenzaprine 5 mg oral tablet 1 tablet = 5 mg, By Mouth, Daily, PRN Pain , Moderate, 0 Refills, Maintenance, 11/10/22 10:18:00 AM EDT, Partial fill upon patient request if the prescription is for a schedule II opioid drug. Start Date: 11/10/22 Status: Ordered Repeat number: 1 ibuprofen 600 mg oral tablet 1 tablet = 600 mg, By Mouth, Every 6 hours, PRN Pain , Moderate, # 120 tablet, 0 Refills, Maintenance, 08/12/14 12:43:58 AM EST, Tablet Start Date: 08/12/14 Status: Ordered Quantity: 120.0 Unit: tablet Repeat number: 1 Multivitamin Daily, 0 Refills, Maintenance, 08/26/21 8:40:00 AM EST, Partial fill upon patient request if the prescription is for a schedule II opioid drug. Start Date: 08/26/21 Status: Ordered Repeat number: 1 tolterodine 2 mg oral tablet 1 tablet = 2 mg, By Mouth, Daily, 0 Refills, Maintenance, 11/07/23 8:59:00 AM EDT, Partial fill upon patient request if the prescription is for a schedule II opioid drug. Start Date: 11/07/23 Status: Ordered Repeat number: 1 Vagifem 10 mcg vaginal tablet 1 tablet = 10 mcg, Vaginally, Every Monday and Monday, # 24 tablet, 3 Refills, Maintenance, 249:18:00 AM EDT, [facility]/pharmacy #[id number], Partial fill upon patient request if the prescription is for a schedule II opioid drug., 170, cm, 11/07/23 8:56:00 EDT, Height Start Date: 11/07/23 Status: Ordered Quantity: 24.0 Unit: tablet Repeat number: 4 Indication: Postmenopausal atrophic vaginitis Problem List Condition Confirmation Course Effective Dates Status Health St atus Informant Atrophic vaginitis Confirmed Active Tinnitus, bilateral Confirmed Active Interstitial cystitis Confirmed Active Vertigo Confirmed Active Social History Social History Type Response Smoking Status Never (less than 100 in lifetime) entered on: 08/26/21 Sex Sex Representation Female (finding) Patient Care team information Care Team Personnel Name: Leo Herrera DO Position: Reference Physician Member Role: PCP Address: [address] [place] [address] Leo Herrera MD [address] Telecom: Care Team Related Persons Name: NASEEM SPRAGUE Insurance Providers Guarantor name: JOVANNY BISHOP Health Plan Information #: 1 Payer: MEDICARE PART B OUTPT Member Number: NA Policy Number: NA Group Number: NA Health Plan Information #: 2 Payer: [facility] Member Number: NA Policy Number: NA Group Number: NA
== END 2024-08-21 11:34 | disposition home or self-care (01) ==
LOC: HO.LAB 11:33
PROVIDERS: Visit Provider Physician Assistant Medical
DX: R30.0 Dysuria (principal); R82.79 Other abnormal findings on microbiological examination of urine
CPT/HCPCS: 81001; 87086

== ENCOUNTER 2024-08-22 09:24 | Outpatient (REF) | payer MEDICARE, OTHER, SELFPAY ==
[2024-08-22 09:52] LABS: MANUAL DIFF FLAG NO
[2024-08-22 10:26] LABS: Basophils Absolute Auto 0.1 X10*3/uL (0.0-0.2); Basophils Percent Auto 1.3 % (0-2); Eosinophils Absolute Auto 0.1 X10*3/uL (0.0-0.4); Eosinophils Percent Auto 2.3 % (0-4); Hemoglobin 14.5 g/dl (12.0-16.0); Imm Gran Abs Auto 0.03 X10*3/uL (0.00-0.03); Imm Gran Pct Auto 0.6 % (0.0-0.4); Lymphocytes Absolute Auto 1.4 X10*3/uL (1.2-4.9); Mean Corpuscular HGB Conc 32.2 g/dl (31.0-35.0); Mean Corpuscular Hemoglobin 29.5 pg (27.0-33.0); Mean Corpuscular Volume 91.6 fL (80.0-98.0); Mean Platelet Volume 9.1 fL (9.4-12.3); Monocytes Absolute Auto 0.6 X10*3/uL (0.1-1.2); Neutrophils Absolute Auto 3.1 x10*3/uL (2.0-8.3); Neutrophils Percent Auto 58.8 % (45-73); Platelet Count 248 X10*3/uL (160-400); Red Blood Count 4.91 X10*6/uL (4.20-5.50); Red Cell Distribution Width 14.3 % (11.0-16.0); White Blood Count 5.2 X10*3/uL (4.8-10.8)
[2024-08-22 10:32] LABS: Estimated Average Glucose 111 mg/dL; Hemoglobin A1C 138.7402 umol/L; Hemoglobin A1c % 5.5 % (<6.0); Total Hemoglobin (HGBA1C) 3775.7014 umol/L
[2024-08-22 11:12] LABS: Alanine Aminotransferase 40 U/L (0-31); Albumin Level 4.1 g/dL (3.5-5.0); Alkaline Phosphatase 68 U/L (39-117); Anion Gap 10 (12-20); Aspartate Amino Transferase 47 U/L (5-31); Bilirubin Direct 0.1 mg/dL (0.0-0.5); Bilirubin Total 0.4 mg/dL (0.0-1.0); Blood Urea Nitrogen 20 mg/dL (9-16); Calcium 9.3 mg/dL (8.4-10.2); Carbon Dioxide 29 mmol/L (22-29); Chloride 107 mmol/L (96-108); Cholesterol 186 mg/dL (<200); Estimated Glomerular Filt Rate > 60; Glucose Fasting 98 mg/dL (60-99); HDL Cholesterol 58 mg/dL (>40); LDL Cholesterol Calculated 108 mg/dL (<100); Magnesium 2.4 mg/dL (1.6-2.6); Potassium 4.9 mmol/L (3.3-5.1); Sodium 141 mmol/L (135-145); TSH reflex Free T4 1.43 uIU/mL (0.32-4.0); Total Protein 7.3 g/dL (6.5-8.0); Triglycerides 103 mg/dL (<150); Vitamin D 25-OH Total 56.6 ng/mL (>30)
[2024-08-22 11:22] LABS: Vitamin B12 1268 pg/mL (200-900)
== END 2024-08-22 09:25 | disposition home or self-care (01) ==
LOC: HO.LAB 09:24
PROVIDERS: Visit Provider Physician Assistant Medical
DX: Z09 Encounter for follow-up examination after completed treatment for conditions other than malignant neoplasm (principal); E78.5 Hyperlipidemia, unspecified; Z13.1 Encounter for screening for diabetes mellitus
CPT/HCPCS: 36415; 80053; 80061; 80076; 82248; 82306; 82550; 82607; 82746; 83036; 83735; 84443; 85025

== ENCOUNTER 2024-08-26 14:20 | Outpatient (REF) | payer MEDICARE, OTHER, SELFPAY ==
[2024-08-26 15:32] LABS: Appearance Urine Clear; Color Urine Yellow; Glucose Urine UA Negative (Negative); Leukocyte Esterase Urine Negative (Negative); Nitrite Urine Negative (Negative); PH 5.5 (5.0-9.0); Urine Blood Negative (Negative); Urine Ketones Negative (Negative); Urine Protein Negative (Neg-Trace)
--- OUTSIDE RECORDS SUMMARY | 2024-08-26 18:50 | XMS_ITS | Clinical Summary ---
Author Organization [facility] [email or web address] Address [address] [place] [address] Care Team Providers Care Comfort Station Attendant Name Role Phone Leo Herrera DO Primary Care Provider [phone] Social History Tobacco Use Types Packs/Day Years Used Date Smoking Tobacco: Never Assessed Comments Unknown Sex and Gender Information Value Date Recorded Sex Assigned at Not on file Legal Sex Female 7:40 AM EDT Gender Identity Not on file Sexual Orientation Not on file Plan of Treatment Health Maintenance Due Date Last Done Comments Colorectal Cancer: COLONOSCO PY Screening every 10 yrs (or Modifier) 1955 Depression: Screening Annual ly using PHQ-2/9 in Adults 18 yrs or above (or HM Modifier)([facility]) 1971 Hepatitis C Virus Infection in Adolescents and Adults: Screening (or Modifier) ([facility]) 1971 [facility] Screening Reminder: Sharon peter for all adults ([facility]) 1971 Tobacco Smoking Cessation: i n Adults excluding Women: Behavioral and Pharmacotherapy Interventions ([facility]) 1971 DTaP/Tdap/Td Vaccines ([facility]) (1 - Tdap) 01/10/1972 Colorectal Cancer Screening 45 -75 Yrs (or HM Modifier ) 1998 Colorectal Cancer: FLEXIBLE SIGMOIDOSCOPY Screening every 5 yrs 1998 Colorectal Cancer: Fecal Imm unochemical Test (FIT) Annually [facility] 1998 Colorectal Cancer: High-sens itivity gFOBT Screening Annually [facility] 1998 Colorectal Cancer: Stool Col oguard Screening every 3 yrs 1998 Colorectal Cancer:CT Colonography Screening every 5 yr s 1998 Lipid Screening: Every 5 yrs for Women aged 45+ (or HM Modifier) ([facility]) 1999 Breast Cancer: Screening Sharon peter age 50-74 yrs (or HM Modifier)([facility]) 2003 Zoster/Shingles Vaccine Seri es Screening: Adults aged 18+ yrs (or HM Modifiers)([facility] ) (1 of 2) 2003 RSV Vaccines (1 - 1-dose 60+ series) 2013 Osteoporosis Screening to Pr event Fractures: Women aged 65 years+ ([facility] ) 2018 Pneumococcal Vaccination Scr eening: Patients 65+ yrs of age ([facility]) (1 of 1 - PCV) 2018 Flu Vaccination: Ages 65+: Y early High Dose Recommended (or Modifier)([facility]) 02/29/2024 COVID-19 Vaccine Screening: Initial Series and Booster Status ([facility]) (2023- season) 2024 [employer] Not on file [place] [address] [address] [place] [id number] Care Teams Comfort Station Attendant Relationship Specialty Start Date End Date Leo Herrera DO [address] [place] [phone] PCP - General Internal Medicine 05/08/20
--- OUTSIDE RECORDS SUMMARY | 2024-08-26 18:50 | XMS_ITS ---
Author Organization Leo Herrera DO, FACP Address [address] [place], [place] [address] Care Team Providers Care Account Adjuster Name Role Phone Leo Herrera Primary Care Provider REASON FOR VISIT FYI Encounters Encounter Location Date Provider Diagnosis Leo Herrera DO, FACP [address] [place] [phone] 07/12/2024 Leo Herrera PLAN OF TREATMENT No Information
--- OUTSIDE RECORDS SUMMARY | 2024-08-26 18:50 | XMS_ITS ---
Author Organization Leo Herrera DO, FAC Address [address] [place] [id number] Care Team Providers Care Control Panel Assembler Name Role Phone Leo Herrera Primary Care Provider [phone] ALLERGIES Allergen (clinical drug ingredient) Drug/Non Drug Allergy documented on EMR Reaction Allergy Type Onset Date Status fluoxetine Prozac rash Drug Allergy Active Luvox CR swelling Drug Allergy Active erythromycin Erythromycin hives Drug Allergy A ctive Substance with serotonin re-uptake inhibitor mechanism of action (substance) SSRI's (uncoded) swollen tongue Allergy Active BuSpar blurred vision and weight gain Drug Allergy Active Penicillin hives Drug Allergy Active sulfa hives, swollen eyes Drug Allergy Active RESULTS Component Value Reference Range Notes XR chest 2V Reviewed date:07/16/2024 03:01:47 PM Interpretation:Negative Performing Lab: Notes/Report: [address] [address] XRay Report Signed Patient: Kit Guillory MR#: [id number] : 1955 Acct:[id number] Age/Sex: 69 / F ADM Date: 07/16/24 Loc: HO.XRAY Attending Dr: Leo Herrera DO Ordering Physician: Leo Herrera DO Date of Service: 07/16/24 Procedure(s): XR chest 2V Accession Number(s): [id number] cc: Leo Herrera DO EXAMINATION: XR CHEST CLINICAL INFORMATION: H/O recent pneumonia one month ago COMPARISON: 12/27/2023, 10/29/2020 TECHNIQUE: 2 views of the chest were obtained. FINDINGS: There is no gross pneumothorax. Lungs are well-inflated. Mild dextroscoliosis of the thoracic spine with multilevel degenerative changes. Heart size is normal.. No significant pleural effusion. No new focal consolidation. XR/XR chest 2V IMPRESSION: No new focal consolidation. This study was presented today to July 16, 2024 for interpretation. Stat results provided at this time as requested by referring provider. Electronically signed by: Berkley Bolden MD 07/16/2024 11:49 AM EST Dictated By: Berkley Bolden MD Signed By: <Electronically signed by Berkley Bolden MD in OV> 07/16/24 1149 DD/ 0916 TD/TT: 07/16/24 0934 Pit Furnace Operator: REASON FOR VISIT Follow up hypercholesterolemia MEDICATIONS Medication SIG (Take, Route, Frequency, Duration) Notes Start Date End Date Status Tolterodine Tartrate ER 2 MG 1 capsule as needed Orally Once a day Active Aspirin Adult Low Dose 81 MG 1 tablet Orally Once a day Active Multivitamin - 1 tablet Orally Once a day Active Fish Oil 1000 MG 1 capsule Orally Onc e a day Active Atorvastatin Calcium 10 MG 1 tablet Oral ly Once a day for 90 days 07/12/2024 Active Vagifem 10 MCG 1 tablet Vaginal Two times a Week Active Vitamin D-3 1000 UNIT 1 capsule Orally O nce a day Active Probiotic 250 MG 1 capsule Orally Onc e a day Active PreserVision AREDS 2 - 1 capsule Orally Once a day Active Vitamin C 500 MG 1 tablet Orally Once a day Active SOCIAL HISTORY Tobacco Use: Social History Observation [...] ast year? No Points 0 Interpretation Negative Encounters Encounter Location Date Provider Diagnosis [facility] Her[facility] DO, [facility] [address] [place] [phone] 07/12/2024 Leo Herrera Hypercholesterolemia E78.00 ; Interstitial cystitis N30.10 and History of recent pneumonia Z87.01 ASSESSMENTS Encounter Date Diagnosis Assessment Notes Treatment Notes Treatment Clinical Notes 07/12/2024 Hypercholesterolemia (ICD-10 - E78.00) 07/12/2024 Interstitial cystiti s (ICD-10 - N30.10) 07/12/2024 History of recent pneumonia (ICD-10 - Z87.01) PLAN OF TREATMENT Medication Medication Name Sig Start Date Stop Date Notes Tolterodine Tartrate ER 2 MG 1 capsule a s needed Orally Once a day Aspirin Adult Low Dose 81 MG 1 tablet Orally Once a day Multivitamin - 1 tablet Orally Once a day Fish Oil 1000 MG 1 capsule Orally Once a day Atorvastatin Calcium 10 MG 1 tablet Oral ly Once a day for 90 days 07/12/2024 Vagifem 10 MCG 1 tablet Vaginal Two times a Week Vitamin D-3 1000 UNIT 1 capsule Orally Once a day Probiotic 250 MG 1 capsule Orally Once a day PreserVision AREDS 2 - 1 capsule Orally Once a day Vitamin C 500 MG 1 tablet Orally Once a day Pending Test Test Name Order Date LIPOPROTEIN FRACTIONATION (LIPID PANEL) 07/12/2024 PROFILE, FASTING 07/12/2024 Next Appt Details Follow Up: 3 Months, Reason: follow up visit,review lab work Progress Notes * Examination Category Sub-Category Detail Notes General Examination GENERAL APPEARANCE: in no ac amanda distress, well developed, well nourished HEAD: LUNGS: breathing comfortabl y at rest PSYCH: alert, oriented, cog nitive function intact History and Physical Notes * HPI (History of Present Illness) Category Sub-Category Detail Notes New symptom(s) Telehealth Location of provider:: Pro carrizalesr's home address Location of patient:: Address listed in demographics for today's visit Patient identification confirmed using:: Name, Telehealth method:: Video co nference where patient is visible to the provider of care Consent:: Patient verbally c onsented to treatment, Patient verbally consented to billing insurance company, Patient informed of any privacy concerns related to method of visit Total time spent with patient (mins): 23 Disclaimer: This Telehealth visit is being conducted per CDC recommendations due to the COVID-19 outbreak.
--- OUTSIDE RECORDS SUMMARY | 2024-08-26 18:50 | XMS_ITS | Patient Health Record ---
Author Organization [facility] Address [address] [place] [address] Care Team Providers Care Costume Cutter Name Role Phone Sharon (RETIRED) Leo HARGROVE Primary Care Provid er Unavailable Leo Latham Unavailable [phone] ALLERGIES Allergen (clinical drug ingredient) Drug/Non Drug [...] confirmed Screening for malignant neoplasm of colon (342033094) Problem History of adenomatous polyp of colon (Z86.010) Active confirmed History of adenomatous polyp of colon (529631429) Problem Preprocedural examination (Z01.818) Active confirmed Preprocedural examination ([id number] ) Encounters Encounter Location Date Provider Diagnosis [facility] [address] [place] [address] 05/31/2024 Leo Latham PLAN OF TREATMENT Future Test Test Name Order Date COLONOSCOPY 04/29/2015 COLONOSCOPY 08/27/2020 Insurance Providers Payer Name Payer Address Payer Phone Subscriber Number Group Number Insured Name Patient Relationship to Insured Coverage Start Date Coverage End Date [facility] [address] [facility] [place] [phone] [id number] JOVANNY VIRAMONTES Self - patient is the insured MEDICAL (GENERAL) HISTORY Medical History History ICD Code 1 tubular adenoma remioved i n 2000--negative colonoscopies in 2005 and on 07-16-2010 Denies [place],DM,CVA,Lung disease,renal dise ase Neuropathy in feet Allergies Colonoscopy 07/2015-1 small tubular adeno ma removed Surgical History Surgery Date(Month/Year) Shoulder surgery-left BTL Back surgery--lumbar disc-Dr. Phillips 09/19 15
--- OUTSIDE RECORDS SUMMARY | 2024-08-26 18:51 | XMS_ITS ---
Author Organization [facility] Address [address] [place] [address] Care Team Providers Care Sap Abap Developer Name Role Phone Sharon (RETIRED) Leo HARGROVE Primary Care Provid er Unavailable Leo Latham Unavailable [phone] REASON FOR VISIT hemmorhoids Encounters Encounter Location Date Provider Diagnosis [facility] [address] [place] [address] 05/31/2024 Leo Latham PLAN OF TREATMENT No Information
--- OUTSIDE RECORDS SUMMARY | 2024-08-26 18:51 | XMS_ITS ---
Author Organization Leo Herrera DO, FACP Address [address] [place], [place] [phone] Care Team Providers Care Hammer Setter Name Role Phone Leo Herrera Primary Care Provider [phone] REASON FOR VISIT 6 month f/u Encounters Encounter Location Date Provider Diagnosis Leo Herrera DO, FACP [address] [place] [phone] 07/05/2024 Leo Herrera PLAN OF TREATMENT No Information
== END 2024-08-26 14:21 | disposition home or self-care (01) ==
LOC: HO.LAB 14:20
PROVIDERS: PCP Internal Medicine; Visit Provider Physician Assistant Medical
DX: R30.0 Dysuria (principal)
CPT/HCPCS: 81003

== ENCOUNTER 2024-09-17 13:51 | Outpatient (AMB) | payer MEDICARE, OTHER, SELFPAY ==
--- NOTE | 2024-09-17 14:03 | MHC.PC.OV ---
Vital Signs 09/17/24 14:18 Height 5 ft 5.75 in Weight 178 lb BMI 28.9 BP 140/74 H Blood Pressure Location Rt brachial Pulse 87 Pulse Source Pulse Oximeter Temp 97.2 F Pulse Oximetry (%) 98 Intake Visit Reasons: persistent itchiness Intake Note: statins, question getting tested for food allergies Allergies erythromycin base Allergy (Intermediate, Verified 09/17/24 15:37) Hives fluoxetine [Prozac] Allergy (Intermediate, Verified 09/17/24 15:37) rash penicillin V Allergy (Intermediate, Verified 09/17/24 15:37) hives Sulfa (Sulfonamide Antibiotics) Allergy (Intermediate, Verified 09/17/24 15:37) hives buspirone [From BuSpar] Adverse Reaction (Intermediate, Verified 09/17/24 15:37) blurred vision SSRI's Allergy (Intermediate, Uncoded 09/17/24 15:37) oral swelling Medication List - Last Reconciled 09/17/24 by Arina Laws PA-C acetaminophen (Tylenol) 325 mg PO QID PRN albuterol sulfate 90 mcg/actuation 1 puff inhalation Q4-6H PRN aspirin (Deya Low Dose Aspirin) 81 mg PO DAILY hydrocortisone 2.5% 1 appl topical TID hydroxyzine HCl 50 mg PO Q6-8H PRN ibuprofen (Advil) 200 mg PO BID PRN metronidazole 0.75% 1 appl topical BID multivitamin 1 tab PO DAILY omega-3 fatty acids 1,000 mg PO DAILY prednisone 40 mg (2 x 20 mg) PO DAILY 5 days tolterodine ER 2 mg PO Q24H vit C,G-Cc-poziq-lutein-zeaxan 250-90-40-1 mg (PreserVision AREDS-2) 1 tab PO BID HPI HPI Comments History of Present Illness Details 69-year-old female with a past medical history of hyperlipidemia, interstitial cystitis, anxiety, neuropathy, chronic low back pain due to lumbar herniated this, history of tubular adenoma who is presenting to the primary care clinic for ongoing evaluation and management of her chronic medical conditions. Patient would also like to discuss the rash and itchiness that she has been having after starting Cholest Care. Approximately 1-2 weeks ago patient had called the office and reported that 1 of her friends were currently on this cholesterol medication that she would like to try other than being on a statin. Although she immediately started having itchiness and a rash to her body after 24 hours of starting Cholest care. She called our office and we sent her prednisone along with hydrocortisone 2.5 topical ointment and hydroxyzine. She reports she has been taking this and the rash has improved although she still has itchiness throughout her entire body. She is unsure why. She is noted to have a butterfly like rash on her face although she relates this to possibly cleaning the snow yesterday in the high winds. She denies a family history of lupus. Patient reports she follows up with a english teacher called Dr. strong in [place]. This was due for multiple skin tags. She reports she has an appointment next month in September and she can call them to see if they have any earlier appointments due to this rash on her face and itchiness to her entire body without a rash. Patient had discontinued all her medications when she started the rash and itchiness to her entire body. She is agreeable to restarting the fish oil and all her other medications other than the new medication Cholest Care. Patient recently had dental work done and then had to get it redone over the past 1-2 months and this also gave the patient stress in her body. Patient is currently being followed by Dr. Bautista who specializes in allergies. Although he does not assess for any food allergies therefore patient requesting for referral to an retail store associate that her friends goes to and [facility]. Referral placed at this time. Patient has a history of anxiety which is being controlled without any medications. Patient has a history of interstitial cystitis which is being controlled with Tolterodine ER 2mg daily. Otherwise patient denies any other symptoms complaints or concerns at this time. [facility] Medical History (Updated 09/17/24 @ 17:42 by Arina Laws PA-C) Elevated blood pressure reading Tubular adenoma Chronic low back pain Lumbar herniated disc Neuropathy Anxiety Interstitial cystitis Rash Skin lesions Papilloma of skin Low back pain Interstitial cystitis Hypercholesterolemia Surgical History (Updated 09/17/24 @ 17:49 by Arina Laws PA-C) History of back surgery Hx of tubal ligation Hx of shoulder surgery History of H/O colonoscopy (~10/23/20) Family History Family/Other Liver cancer Brother No problems noted. Social History Alcohol intake: never Patient Tobacco Use Status: Never used Tobacco Physical exam (Primary Care) Vital Signs: Last Vital Signs Temp 97.2 F 09/17/24 14:18 Pulse 87 09/17/24 14:18 BP 140/74 H 09/17/24 14:18 Pulse Ox 98 09/17/24 14:18 Care Plan Goal for BP management: 130/80 patient to monitor her blood pressure and bring it diarrhea at her next visit BMI result Body Mass Index 28.9 BMI Assessment/Plan discussion: High BMI High, discussed plan: lifestyle, weight reduction, dietary, physical activity and alcohol moderation Tobacco/Smoking Status: Tobacco use Status Patient Tobacco Use Status Never used Tobacco 09/17/24 14:05 Const Other: Appearance: Alert. Oriented X3. No acute distress. Head: Normal external exam. Normocephalic. Atraumatic. Eyes: Conjunctiva and sclera normal. Eyelids normal. ENT: MMM. Normal voice. Neck: Normal inspection. Neck supple. FROM. No adenopathy. Thyroid Normal. No meningeal signs. No neck mass noted. CVS: Normal heart rate and rhythm. Heart sound normal. Pulses normal throughout. No murmurs/rales/gallops. Respiratory: No respiratory distress. Painless inspiration. Breath sounds normal. No wheezes/rales/rhonchi noted. Chest nontender. No crepitus is noted. No accessory muscle usage noted or decreased air movement noted. No signs of trauma. Abdomen: Soft and nontender. Nondistended. No guarding. No rigidity. Bowel sounds normal in all 4 quadrants. No distention noted. No organomegaly noted. No visible injury noted. No rebound tenderness. Back: Full range of motion noted. Skin: Skin warm and dry. Normal skin color. Normal skin turgor. To the patient's face patient has a butterfly like contact dermatitis. No signs of active infection. No additional rashes are noted to the entire body. No angioedema is noted. No lesions/lacerations noted. Extremities: No lower extremity edema. No calf tenderness is noted. Extremities exhibit normal range of motion and nontender. Neuro: Oriented X 3. Moving all extremities. Normal steady gait. No focal neuro deficits noted. Vascular: + radial pulses b/l. Normal cap refill. No cyanosis noted. Coding Level of Care Code Est Pt Level 4 (17538) Complex EM visit Add On G2211 Diagnoses Rash R21 Hyperlipidemia E78.5 Elevated blood pressure reading R03.0 Tubular adenoma D36.9 Chronic low back pain M54.50; G89.29 Lumbar herniated disc M51.26 Neuropathy G62.9 Interstitial cystitis N30.10 Anxiety F41.9 Assessment & Plan Assessment & Plan (1) Rash: Code(s): R21 - Rash and other nonspecific skin eruption Category: Medical Plan: Concerned for rosacea, lupus, allergic reaction, drug reaction. Will obtain outpatient labs including ELE. Patient to follow-up with her english teacher as scheduled or to call for an earlier appointment. Patient being referred to retail store associate at [facility] who also test for food. Patient to continue following up with Dr. Bautista for her other allergies. Condition is stable will continue to monitor. (2) Hyperlipidemia: Code(s): E78.5 - Hyperlipidemia, unspecified Category: Medical Plan: Patient to restart her fish oil. Condition is chronic and stable continue to monitor. (3) Elevated blood pressure reading: Code(s): R03.0 - Elevated blood-pressure reading, without diagnosis of hypertension Category: Medical Plan: Patient noted to have elevated blood pressure has not been on blood pressure medication. She will continue to monitor her blood pressure and bring or diarrhea at her next visit. Condition is stable will continue to monitor. (4) Tubular adenoma: Code(s): D36.9 - Benign neoplasm, unspecified site Category: Medical Plan: Patient being followed by gastroenterology and has regular colonoscopies. Condition is chronic and stable continue to monitor. (5) Chronic low back pain: Code(s): M54.50 - Low back pain, unspecified; G89.29 - Other chronic pain Category: Medical Plan: Condition is chronic and stable continue to monitor. (6) Lumbar herniated disc: Code(s): M51.26 - Other intervertebral disc displacement, lumbar region Category: Medical Plan: Condition is chronic and stable continue to monitor. (7) Neuropathy: Code(s): G62.9 - Polyneuropathy, unspecified Category: Medical Plan: Condition is chronic and stable continue to monitor. (8) Interstitial cystitis: Code(s): N30.10 - Interstitial cystitis (chronic) without hematuria Category: Medical Plan: Patient currently on Tolterodine 2mg every 24 hours. Condition is chronic and stable continue to monitor. (9) Anxiety: Code(s): F41.9 - Anxiety disorder, unspecified Category: Medical Plan: Condition is chronic and stable continue to monitor. Plan Patient will be referred to retail store associate at [facility] for food allergy testing Patient to follow-up with her normal retail store associate at [facility] for her chronic allergies that are not related to food Patient to have outpatient blood work which include ELE, CRP, celiac testing, Lyme disease, magnesium. Will prescribe topical Flagyl for the patient's rash of her face as the hydrocortisone should not be used for prolonged periods of time can cause thinning of the skin Patient to monitor her blood pressure and to keep a diary and to bring it to her next visit Patient to restart her fish oil for her hyperlipidemia. Orders: Orders ELE Reflex Titer and Pattern Today R21 - Rash and other nonspecific skin eruption C Reactive Protein Today Z00.00 - Encounter for general adult medical examination without abnormal findings Endomysial IgA rflx Titer Today R21 - Rash and other nonspecific skin eruption Lyme IgG/IgM w/reflex to WB Today R21 - Rash and other nonspecific skin eruption Magnesium Today Z00.00 - Encounter for general adult medical examination without abnormal findings Celiac Diagnostic Gliadin TTG Today R21 - Rash and other nonspecific skin eruption Referrals Allergy & Immunology Referral R21 - Rash and other nonspecific skin eruption Medications: New metronidazole 0.75% 1 appl topical BID 45 grams 0RF Discontinued bempedoic acid (Nexletol) Discontinued Reason: Duplicate 180 mg PO DAILY 90 days 90 tabs 1RF hyperlipidemia
[2024-09-17 14:18] VITALS: BP 140/74; PULSE 87; TEMP 36.2; O2SAT 98; BMI 28.9
--- OUTSIDE RECORDS SUMMARY | 2024-09-17 14:55 | XMS_ITS | Patient Health Record ---
Author Organization [facility] Address [address] [place] [address] Care Team Providers Care Grating Machine Operator Name Role Phone Sharon (RETIRED) Leo HARGROVE Primary Care Provid er Unavailable Leo Latham Unavailable [phone] ALLERGIES Allergen (clinical drug ingredient) Drug/Non Drug [...] confirmed Screening for malignant neoplasm of colon (102323526) Problem History of adenomatous polyp of colon (Z86.010) Active confirmed History of adenomatous polyp of colon (791781387) Problem Preprocedural examination (Z01.818) Active confirmed Preprocedural examination ([id number] ) Encounters Encounter Location Date Provider Diagnosis [facility] [address] [place] [address] 05/31/2024 Leo Latham PLAN OF TREATMENT Future Test Test Name Order Date COLONOSCOPY 04/29/2015 COLONOSCOPY 08/27/2020 Insurance Providers Payer Name Payer Address Payer Phone Subscriber Number Group Number Insured Name Patient Relationship to Insured Coverage Start Date Coverage End Date [facility] [address] [facility] [place] [phone] [id number] JOVANNY VIRAMONTES Self - patient is the insured MEDICAL (GENERAL) HISTORY Medical History History ICD Code 1 tubular adenoma remioved i n 2000--negative colonoscopies in 2005 and on 07-16-2010 Denies OH,DM,CVA,Lung disease,renal dise ase Neuropathy in feet Allergies Colonoscopy 07/2015-1 small tubular adeno ma removed Surgical History Surgery Date(Month/Year) Shoulder surgery-left BTL Back surgery--lumbar disc-Dr. Phillips 09/19 15
--- OUTSIDE RECORDS SUMMARY | 2024-09-17 14:55 | XMS_ITS ---
Author Organization Leo Herrera DO, FACP Address [address], [place] [id number] Care Team Providers Care Hat And Cap Opener Name Role Phone Leo Herrera Primary Care Provider [phone] REASON FOR VISIT 6 month f/u Encounters Encounter Location Date Provider Diagnosis Leo Herrera DO, FACP [address] [place] [phone] 07/05/2024 Leo Herrera PLAN OF TREATMENT No Information
--- OUTSIDE RECORDS SUMMARY | 2024-09-17 14:55 | XMS_ITS ---
Author Organization [facility] Address [address] [place] [address] Care Team Providers Care Clinical Sales Consultant Name Role Phone Sharon (RETIRED) Leo HARGROVE Primary Care Provid er Unavailable Leo Latham Unavailable [phone] REASON FOR VISIT hemmorhoids Encounters Encounter Location Date Provider Diagnosis [facility] [address] [place] [address] 05/31/2024 Leo Latham PLAN OF TREATMENT No Information
--- OUTSIDE RECORDS SUMMARY | 2024-09-17 14:56 | XMS_ITS ---
Author Organization Leo Herrera DO, FACP Address [address] [place], [place] [id number] Care Team Providers Care Lubricator Granulator Name Role Phone Leo Herrera Primary Care Provider REASON FOR VISIT FYI Encounters Encounter Location Date Provider Diagnosis Leo Herrera DO, FACP [address] [place] [phone] 07/12/2024 Leo Herrera PLAN OF TREATMENT No Information
== END 2024-09-17 15:16 | disposition home or self-care (01) ==
LOC: HO.HMCSH 13:51
PROVIDERS: PCP Internal Medicine; Visit Provider Physician Assistant Medical
DX: R21 Rash and other nonspecific skin eruption (principal); E78.5 Hyperlipidemia, unspecified; R03.0 Elevated blood-pressure reading, without diagnosis of hypertension; D36.9 Benign neoplasm, unspecified site; M54.50 Low back pain, unspecified; G89.29 Other chronic pain; M51.26 Other intervertebral disc displacement, lumbar region; G62.9 Polyneuropathy, unspecified; N30.10 Interstitial cystitis (chronic) without hematuria; F41.9 Anxiety disorder, unspecified

== ENCOUNTER 2024-09-17 13:51 | Outpatient (REF) | payer MEDICARE, OTHER, SELFPAY ==
[2024-09-17 16:16] LABS: Appearance Urine Clear; Color Urine Yellow; Glucose Urine UA Negative (Negative); Leukocyte Esterase Urine Small (1+) (Negative); Nitrite Urine Negative (Negative); PH 5.5 (5.0-9.0); UMIC TRIGGER UACC YES; Urine Blood Negative (Negative); Urine Ketones Negative (Negative); Urine Protein Negative (Neg-Trace)
--- OUTSIDE RECORDS SUMMARY | 2024-09-17 16:32 | XMS_ITS ---
Author Organization Leo Herrera DO, FAC Address [address] [place], [place] [id number] Care Team Providers Care Senior Technical Manager Name Role Phone Leo Herrera Primary Care Provider ALLERGIES Allergen (clinical drug ingredient) Drug/Non Drug [...] date:07/16/2024 03:01:47 PM Interpretation:Negative Performing Lab: Notes/Report: [address] [address] XRay Report Signed Patient: Kit Guillory MR#: [id number] : 1955 Acct:[id number] Age/Sex: 69 / F ADM Date: 07/16/24 Loc: HO.XRAY Attending Dr: Leo Herrera DO Ordering Physician: Leo Herrera DO Date of Service: 07/16/24 Procedure(s): XR chest 2V Accession Number(s): [id number] cc: Leo Herrera DO EXAMINATION: XR CHEST [...] 07/16/24 1149 DD/ 0916 TD/TT: 07/16/24 0934 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
[2024-09-17 16:33] LABS: Bacteria Urine None Seen (None Seen); Hyaline Casts Urine 0-2 /LPF (0-2); RBC Urine 0-2 /HPF (0-2); Squamous Epithelial Cell Urine 0-2 /HPF (0-2); UACC Culture Trigger YES; WBC Urine 0-5 /HPF (0-5)
--- OUTSIDE RECORDS SUMMARY | 2024-09-17 16:33 | XMS_ITS | Patient Health Record ---
Author Organization Leo Herrera DO, [facility] Address [address], [place] [id number] Care Team Providers Care Psychologist Name Role Phone Leo Herrera Primary Care [...] Active RESULTS Component Value Reference Range Notes MAMMOGRAM, SCREENING Reviewed date:07/12/2024 02:24:21 PM Interpretation:Benign Performing Lab: Notes/Report: Benign Urine Culture Reviewed date:09/27/2023 11:51:18 AM Interpretation:Abnormal Performing Lab:[address] [phone] Notes/Report: Urine Culture Report Result Urine Culture < 10,000 cfu/ml Urinalysis Reviewed date:09/26/2023 02:26:00 PM Interpretation:Negative Performing Lab:[address] [phone] Notes/Report: Color Urine Yellow Appearance Urine Clear PH 7.0 5.0-9.0 Glucose Urine UA Negative Negative mg/dL Urine Blood Negative Negative Specific [place] - Urine 1.015 1.005-1.025 Urine Protein Negative Neg-Trace mg/dL Urine Ketones Negative Negative mg/dL Nitrite Urine Negative Negative Leukocyte Esterase Urine Negative Negative Complete Blood Count Auto Di ff Reviewed date:12/27/2023 09:32:25 AM Interpretation:Normal Performing Lab:[facility], [address] [place] [phone] Notes/Report: White Blood Count 6.1 4.8-10.8 X10*3/uL [...] NRBC Abs Auto 0.000 0.0-0.012 X10*3/uL Comprehensive [place]. Panel Fa st Reviewed date:12/27/2023 10:14:18 AM Interpretation:Abnormal Performing Lab:[facility], [address] [place] [phone] Notes/Report: Sodium 141 135-145 mmol/L Potassium 4.5 3.3-5.1 mmol/L Chloride 107 96-108 mmol/L Carbon Dioxide 27 22-29 mmol/L Anion Gap 12 12-20 Blood Urea Nitrogen 22 9-16 mg/dL Creatinine 0.84 0.5-1.4 mg/dL Estimated Glomerular Filt Rate > 60 NOTE: For -[place] individuals, multiply the result by 1.210. Chronic [...] Panel Reviewed date:12/27/2023 10:16:41 AM Interpretation:Abnormal Performing Lab:[facility], [address] [place] [phone] Notes/Report: Triglycerides 156 <150 mg/dL Desirable Triglyceride: [...] Total Reviewed date:12/27/2023 10:14:18 AM Interpretation:Normal Performing Lab:[facility], [address] [place] [phone] Notes/Report: Vitamin D 25-OH Total 54.7 >30 ng/mL Health Based Reference Values* < 20 ng/mL Deficient 20-30 ng/mL Insufficient > 30 ng/mL Sufficient *Angi CARVAJAL. N Engl J Med. 2007;357:266-280 Care must [...] Hormone Reviewed date:12/27/2023 10:14:18 AM Interpretation:Normal Performing Lab:[facility], [address] [place] [phone] Notes/Report: Thyroid Stimulating Hormone 2.14 0.32-4.0 uIU/mL TSH 3rd Generation ([facility]) XR chest 2V Reviewed date:2024 02:00:35 PM Interpretation:Negative Performing Lab: Notes/Report: [address] [address] XRay Report Signed Patient: Kit Guillory MR#: [id number] : 1955 Acct:[id number] Age/Sex: 68 / F ADM Date: 12/27/23 Loc: HO.LAB Attending Dr: Loe Herrera DO Ordering Physician: Leo Herrera DO Date of Service: 12/27/23 Procedure(s): XR chest 2V Accession Number(s): [id number] cc: Leo Herrera DO EXAMINATION: XR CHEST [...] in OV> 01/09/24 1346 DD/ 0902 TD/TT: Editorial Manager: XR sacroiliac joint 1-2V Reviewed date:05/09/2024 12:45:11 PM Interpretation:Abnormal Performing Lab: Notes/Report: [address] [address] XRay Report Signed Patient: Kit Guillory MR#: [id number] : 1955 Acct:[id number] Age/Sex: 69 / F ADM Date: 05/09/24 Loc: HO.XRAY Attending Dr: Leo Herrera DO Ordering Physician: Leo Herrera DO Date of Service: 05/09/24 Procedure(s): XR sacroiliac joint 1-2V Accession Number(s): [id number] cc: Leo Herrera DO EXAMINATION: XR LUMBAR [...] Yi MD in OV> 05/09/24 1124 DD/ 0835 TD/TT: 05/09/24 0855 Editorial Manager: SR XR pelvis 1-2V Reviewed date:05/09/2024 12:44:42 PM Interpretation:Abnormal Performing Lab: Notes/Report: [address] [address] XRay Report Signed Patient: Kit Guillory MR#: [id number] : 1955 Acct:[id number] Age/Sex: 69 / F ADM Date: 05/09/24 Loc: HO.XRAY Attending Dr: Leo Herrera DO Ordering Physician: Leo Herrera DO Date of Service: 05/09/24 Procedure(s): XR pelvis 1-2V Accession Number(s): [id number] cc: Leo Herrera DO EXAMINATION: XR LUMBAR [...] Yi MD 05/09/2024 11:24 AM EDT RP Workstation: [id number] Dictated By: Moise Yi MD Signed By: <Electronically signed by Moise Yi MD in OV> 05/09/24 1124 DD/ TD/TT: 05/09/2455 Editorial Manager: SR XR lumbar spine 2-3V Reviewed date:05/09/2024 12:44:09 PM Interpretation:Abnormal Performing Lab: Notes/Report: [address] [address] XRay Report Signed Patient: Kit Guillory MR#: [id number] : 1955 Acct:[id number] Age/Sex: 69 / F ADM Date: 05/09/24 Loc: HO.XRAY Attending Dr: Leo Herrera DO Ordering Physician: Leo Herrera DO Date of Service: 05/09/24 Procedure(s): XR lumbar spine 2-3V Accession Number(s): [id number] cc: Leo Herrera DO EXAMINATION: XR LUMBAR [...] in OV> 05/09/24 1124 DD/ TD/TT: 05/09/2455 Editorial Manager: XR sacrum coccyx min 2V Reviewed date:05/09/2024 12:46:46 PM Interpretation:Normal Performing Lab: Notes/Report: [address] [address] XRay Report Signed Patient: Kit Guillory MR#: [id number] : 1955 Acct:[id number] Age/Sex: 69 / F ADM Date: 05/09/24 Loc: [facility] Attending Dr: Leo Herrera DO Ordering Physician: Leo Herrera DO Date of Service: 05/09/24 Procedure(s): XR sacrum coccyx min 2V Accession Number(s): [id number] cc: Leo Herrera DO EXAMINATION: XR LUMBAR [...] 05/09/24 1124 DD/ 0831 TD/TT: 05/09/24 0855 Editorial Manager: SR Complete Blood Count Auto Di ff Reviewed date:06/18/2024 09:25:38 AM Interpretation:Normal Performing Lab:[facility], [address] [place] [phone] Notes/Report: White Blood Count 5.3 4.8-10.8 X10*3/uL [...] NRBC Abs Auto 0.000 0.0-0.012 X10*3/uL Comprehensive [place]. Panel Fa st Reviewed date:06/18/2024 12:41:55 PM Interpretation:Abnormal Performing Lab:[facility], [address] [place] [phone] Notes/Report: Sodium 142 135-145 mmol/L Potassium 4.3 [...] Panel Reviewed date:06/18/2024 12:42:17 PM Interpretation:Abnormal Performing Lab:[facility], [address] [place] [phone] Notes/Report: Triglycerides 161 <150 mg/dL Desirable Triglyceride: [...] low results in patients with liver disease. XR chest 2V Reviewed date:07/16/2024 03:01:47 PM Interpretation:Negative Performing Lab: Notes/Report: [address] [address] XRay Report Signed Patient: Kit Guillory MR#: [id number] : 1955 Acct:[id number] Age/Sex: 69 / F ADM Date: 07/16/24 Loc: J[facility] Attending Dr: Leo Herrera DO Ordering Physician: Leo Herrera DO Date of Service: 07/16/24 Procedure(s): XR chest 2V Accession Number(s): [id number] cc: Leo Herrera DO EXAMINATION: XR CHEST [...] Berkley Bolden MD 07/16/2024 11:49 AM EST RP Dictated By: Berkley Bolden MD Signed By: <Electronically signed by Berkley Bolden MD in OV> 07/16/24 1149 DD/ 0916 TD/TT: 07/16/24 0934 Editorial Manager: REASON FOR REFERRAL Reason Dysuria Diagnosis 1 Dysuria (R30.0) Referral Organization Leo Tavares FACP Referring Provider First Name Leo Referring Provider Last Name Sharon Referring Provider Speciality Internal edicine Referred Provider Trent Lopez Referred Provider Specialty Urology General Notes ErikaErika 11:57:10 AM EST > Referral faxed, appointment with anyone in the practice. Referral Priority Routine Referral Appointment Date 09/28/2023 Reason Right shoulder pain Diagnosis 1 Pain in right should er (M25.511) Referral Organization Leo Tavares FACP Referring Provider First Name Leo Referring Provider Last Name Sharon Referring Provider Speciality Internal edicine Referred Provider [facility] Referred Provider Specialty Orthopedic S urgery General Notes Laura Nino 02:10:36 PM EDT > referral faxed; specialist's office will call patient to schedule appointment; patient aware. Clinical Notes Laura Nino 02:10:20 PM EDT > TELEPHONE ENCOUNTER 03/05/2024:, Right shoulder joint pain, worse when pressure applied (i.e. sleeping on the right side) X 6-7 weeks. Full ROM. Referral Priority Routine Referral Appointment Date 03/30/2024 MEDICATIONS Medication SIG (Take, Route, Frequency, Duration) Notes Start Date End Date Status Vagifem 10 MCG 1 tablet Vaginal Two times a Week Active Tolterodine Tartrate ER 2 MG 1 capsule as needed Orally Once a day Active Aspirin Adult Low Dose 81 MG 1 tablet Orally Once a day Active Multivitamin - 1 tablet Orally Once a day Active Vitamin D-3 1000 UNIT 1 capsule Orally O nce a day Active Fish Oil 1000 MG 1 capsule Orally Onc e a day Active Probiotic 250 MG 1 capsule Orally Onc e a day Active PreserVision AREDS 2 - 1 capsule Orally Once a day Active Vitamin C 500 MG 1 tablet Orally Once a day Active Atorvastatin Calcium 10 MG 1 tablet Oral ly Once a day for 90 days 07/12/2024 Active IMMUNIZATIONS Vaccine Route Administration Date Status [...] confirmed Pain of right shoulder region (finding) (0924701521) Problem Neuropathy (G62.9) Active confirmed 386 [id number] Problem Memory loss (R41.3) Active confirmed 48 314534 Problem Hypercholesterolemia (E78.00) Active confirmed 09691876 Problem Tinnitus of both ear s (H93.13) Active confirmed [id number] Problem Mallet finger of lef t hand (M20.012) Active confirmed 03573719 Problem Interstitial cystiti s (N30.10) Active confirmed 493293692 VITAL SIGNS Blood pressure diastolic 60 mm Hg 11/21/2023 Height 67 in 11/21/2023 Blood pressure systolic 110 mm Hg 11/21/2023 Weight 191 lbs 11/21/2023 BMI 29.91 kg/m2 11/21/2023 Encounters Encounter Location Date Provider Diagnosis Leo Herrera DO, [address] [id number] 11/21/2023 Leo Herrera Encounter for genera l adult medical examination without abnormal findings Z00.00 ; Hypercholesterolemia E78.00 and Interstitial cystitis N30.10 Leo Herrera DO, [address] [id number] 05/22/2024 Leo Herrera DO, [address] [id number] 09/19/2023 Leo Herrera DO, [address] [id number] 09/25/2023 Leo Herrera Dysuria R30.0 Leo Herrera DO, [facility] [address], [place] [phone] 09/26/2023 Leo Herrera DO, [address] [id number] 09/27/2023 Leo Herrera DO, [address] [id number] 10/10/2023 Leo Herrera DO, [address] [id number] 2024 Leo Herrera DO, [facility] [address], [place] [id number] 01/10/2024 Leo Herrera DO, [address] [id number] 02/14/2024 Leo Herrera DO, [address] [id number] 03/05/2024 Leo Herrera DO, [address] [id number] 05/07/2024 Leo Herrera Low back pain, unspe cified back pain laterality, unspecified chronicity, unspecified whether sciatica present M54.50 Leo Herrera DO, [address] [id number] 05/10/2024 Leo Herrera DO, [address] [id number] 05/31/2024 Leo Herrera Hypercholesterolemia E78.00 Leo Herrera DO, [address] [id number] 06/26/2024 Leo Herrera DO, [address] [id number] 07/12/2024 Leo Herrera DO, [address] [id number] 06/26/2024 Leo Herrera DO, [address] [id number] 07/05/2024 Leo Herrera DO, [address] [id number] 07/12/2024 Leo Herrera Hypercholesterolemia E78.00 ; Interstitial cystitis N30.10 and History of recent pneumonia Z87.01 Leo Herrera DO, [address] [id number] 05/07/2024 Leo Herrera DO, [address] [id number] 05/07/2024 Leo Herrera ASSESSMENTS Encounter Date Diagnosis Assessment Notes Treatment Notes Treatment Clinical Notes 11/21/2023 Encounter for genera l adult medical examination without abnormal findings (ICD-10 - Z00.00) 11/21/2023 Hypercholesterolemia (ICD-10 - E78.00) 09/25/2023 Dysuria (ICD-10 - R30.0) 05/07/2024 Low back pain, unspe cified back pain laterality, unspecified chronicity, unspecified whether sciatica present (ICD-10 - M54.50) 05/31/2024 Hypercholesterolemia (ICD-10 - E78.00) 07/12/2024 Hypercholesterolemia (ICD-10 - E78.00) 07/12/2024 Interstitial cystiti s (ICD-10 - N30.10) 11/21/2023 Interstitial cystiti s (ICD-10 - N30.10) 07/12/2024 History of recent pneumonia (ICD-10 - Z87.01) PLAN OF TREATMENT Pending Test Test Name Order Date LIPOPROTEIN FRACTIONATION (LIPID PANEL) 07/12/2024 PROFILE, FASTING 07/12/2024 Insurance Providers Payer Name Payer Address Payer Phone Subscriber Number Group Number Insured Name Patient Relationship to Insured Coverage Start Date Coverage End Date [facility] [address] [place] [phone] [id number] Kit Ferrera Self - patient is the insured MEDICAL (GENERAL) HISTORY Medical History History ICD Code hypercholesterolemia low back pain urinary tract infection interstitial cystitis tubular adenoma toxemia of anxiety Neuropathy herniated lumbar disc Surgical History Surgery Date(Month/Year) wisdom teeth extraction section tubal ligation shoulder arthroscopy cataract-lens implants, OU lumbar disc surgery
[2024-09-17 16:42] LABS: Magnesium 2.4 mg/dL (1.6-2.6)
[2024-09-18 08:44] LABS: Lyme Abs Screen <0.90 index
[2024-09-18 19:54] LABS: Gliadin Deamidated IgA Ab <1.0 U/mL; Gliadin Deamidated IgG Ab <1.0 U/mL; Immunoglobulin A 173 mg/dL (70-320); Transglutaminase Ab IgG <1.0 U/mL; Transglutaminase IgA <1.0 U/mL
[2024-09-19 14:39] LABS: Anti Nuclear Antibody Screen NEGATIVE (NEGATIVE)
[2024-09-19 22:48] LABS: Endomysial IgA Antibody Negative (Negative)
== END 2024-09-17 13:52 | disposition home or self-care (01) ==
LOC: HO.LAB 13:51
PROVIDERS: PCP Internal Medicine; Visit Provider Physician Assistant Medical
DX: R21 Rash and other nonspecific skin eruption (principal); E78.5 Hyperlipidemia, unspecified; R03.0 Elevated blood-pressure reading, without diagnosis of hypertension; D36.9 Benign neoplasm, unspecified site; G89.29 Other chronic pain; M51.26 Other intervertebral disc displacement, lumbar region; G62.9 Polyneuropathy, unspecified; N30.10 Interstitial cystitis (chronic) without hematuria; F41.9 Anxiety disorder, unspecified; Z00.00 Encounter for general adult medical examination without abnormal findings
CPT/HCPCS: 36415; 81001; 82784; 83735; 86038; 86140; 86231; 86258; 86364; 86617; 86618; 87086; 99212

== ENCOUNTER 2024-10-15 10:48 | Outpatient (AMB) | payer MEDICARE, OTHER, SELFPAY ==
[2024-10-15 11:10] VITALS: BP 144/88; PULSE 70; RESP 16; TEMP 36.4; O2SAT 99; BMI 28.6
--- NOTE | 2024-10-15 11:10 | MHC.PC.OV ---
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: No Accompanied by: Self / Same As Patient Allergies erythromycin base Allergy (Intermediate, Verified 10/22/24 06:33) Hives fluoxetine [Prozac] Allergy (Intermediate, Verified 10/22/24 06:33) rash penicillin V Allergy (Intermediate, Verified 10/22/24 06:33) hives Sulfa (Sulfonamide Antibiotics) Allergy (Intermediate, Verified 10/22/24 06:33) hives buspirone [From BuSpar] Adverse Reaction (Intermediate, Verified 10/22/24 06:33) blurred vision SSRI's Allergy (Intermediate, Uncoded 10/22/24 06:33) oral swelling Medication List - Last Reconciled 10/22/24 by Vincenzo Hussein MD acetaminophen (Tylenol) 325 mg PO QID PRN albuterol sulfate 90 mcg/actuation 1 puff inhalation Q4-6H PRN aspirin (Deya Low Dose Aspirin) 81 mg PO DAILY hydrocortisone 2.5% 1 appl topical TID hydroxyzine HCl 50 mg PO Q8H ibuprofen (Advil) 200 mg PO BID PRN metronidazole 0.75% 1 appl topical BID multivitamin 1 tab PO DAILY omega-3 fatty acids 1,000 mg PO DAILY prednisone 40 mg (2 x 20 mg) PO DAILY 5 days tolterodine ER 2 mg PO Q24H vit C,C-Ap-hwdeq-lutein-zeaxan 250-90-40-1 mg (PreserVision AREDS-2) 1 tab PO BID Tobacco use date assessed: 10/15/24 Fall risk assessment: No Falls in past year Last assessed Fall Risk: 10/15/24 Dental Screening Dental Screen Date: 10/15/24 Did you have a dental visit in the last 12 months?: Yes Did you have a dental problem in the last 6 months where you did not have access to dental care?: No PFSH Medical History History of mammogram (~09/21/23) Elevated blood pressure reading Tubular adenoma Chronic low back pain Lumbar herniated disc Neuropathy Anxiety Interstitial cystitis Rash Skin lesions Papilloma of skin Low back pain Interstitial cystitis Hypercholesterolemia Surgical History History of back surgery Hx of tubal ligation Hx of shoulder surgery History of H/O colonoscopy (~10/23/20) Family History Family/Other Liver cancer Brother No problems noted. Social History Housing: House Alcohol intake: never Patient Tobacco Use Status: Never used Tobacco service: No Current occupational status: retired Cognitive needs: No Hearing needs: No Vision needs: Yes (reading glasses) Questionnaire PHQ-9 Over the last 2 weeks, how often have you been bothered by any of the following problems? 1. Little interest or pleasure in doing things: not at all 2. Feeling down, depressed, or hopeless: not at all 3. Trouble falling or staying asleep, or sleeping too much: not at all 4. Feeling tired or having little energy: not at all 5. Poor appetite or overeating: not at all 6. Feeling bad about yourself - or that you are a failure or have let yourself or your family down: not at all 7. Trouble concentrating on things, such as reading the newspaper or watching television: not at all 8. Moving or speaking so slowly that other people could have noticed. Or the opposite - being so fidgety or restless that you have been moving around a lot more than usual: not at all 9. Thoughts that you would be better off or of hurting yourself in some way: not at all Total score: 0 Source: Developed by Drs. Leo Edmond, Rica Trevizo, Rusty Menjivar and colleagues, with an educational sonia from [employer]. Thrive Questionnaire Date Thrive assessed: 10/15/24 I am a: Patient What is your living situation today?: I have a steady place to live Within the past 12 months, did the food you bought not last and you didn't have the money to get more?: Never true Within the past 12 months, did you worry whether your food would run out before you got money to buy more?: Never true Do you have trouble paying for medicines?: No Do you have trouble getting transportation to medical appointments?: No Do you have trouble paying your heating and electricity bill?: No Do you have trouble taking care of your child, family member or friend?: No Do you have trouble with day-to-day activities such as bathing, preparing meals, shopping, managing finances, etc.?: No Are you currently unemployed and looking for a job?: No Are you interested in more education?: No Please select the resources that you would like help with: None THRIVE Score: 0 AUDIT C Alcohol Use Questionnaire (AUDIT-C) 1. How often do you have a drink containing alcohol?: Never 3. How often do you have six or more drinks on one occasion?: Never Total Score: 0 FELIX-7 AMB Questionnaire FELIX-7 Date FELIX - 7 assessed: 10/15/24 Feeling nervous, anxious, or on edge: 0 = Not at all Not being able to stop or control worryin = Not at all Worrying too much about different things: 0 = Not at all Trouble relaxin = Not at all Being so restless that it is hard to sit still: 0 = Not at all Becoming easily annoyed or irritable: 0 = Not at all Feeling afraid as if something awful might happen: 0 = Not at all Total FELIX-7 score (0-4 normal; 5-9 mild; 10-14 moderate; 15-21 severe): 0 Source: Developed by Drs. Leo Edmond, Rica Trevizo, Rusty Menjivar and colleagues, with an educational sonia from [employer]. Physical exam (Primary Care) Vital Signs: Last Vital Signs Temp 97.6 F 10/15/24 11:10 Pulse 70 10/15/24 11:10 Resp 16 10/15/24 11:10 BP 144/88 H 10/15/24 11:10 Pulse Ox 99 10/15/24 11:10 Oxygen Delivery Method Room Air 10/15/24 11:10 BMI result Body Mass Index 28.6 Tobacco/Smoking Status: Tobacco use Status Tobacco use date assessed 10/15/24 10/15/24 11:24 Patient Tobacco Use Status Never used Tobacco 10/15/24 11:24 PHQ-9: PHQ-9 Score PHQ-9: Total score 0 10/15/24 11:24 Thrive Assessment: Date of Thrive Assessment Date Thrive assessed 10/15/24 10/15/24 11:24 Coding Level of Care Code Est Pt Level 4 (88693) Complex EM visit Add On G2211 Diagnoses Anxiety F41.9 Hyperlipidemia E78.5 Assessment & Plan Assessment & Plan (1) Anxiety: Code(s): F41.9 - Anxiety disorder, unspecified Category: Medical Plan: Condition is stable (2) Hyperlipidemia: Code(s): E78.5 - Hyperlipidemia, unspecified Category: Medical Plan: Continues to decline medications Plan History of Present Illness The patient is a 69-year-old female presenting with concerns over adverse reactions to cholesterol-lowering medications. She reports a history of attempted treatment with atorvastatin and Nexdoral, both of which led to significant adverse reactions. On atorvastatin, she experienced muscle weakness, while Nexdoral induced severe urticarial reactions, which have only partially resolved. The patient has a family history of hypercholesterolemia, specifically noted in her father, and has engaged in lifestyle measures such as swimming and healthy eating to manage her cholesterol levels. Despite these efforts, concerns remain regarding her inability to tolerate common lipid-lowering medications. The patient expresses a reluctance to resume statin therapy due to prior adverse reactions but is considering alternative nonstatin treatments for her hyperlipidemia. Social History - Engages in regular physical activity, including swimming at a local community center. - Maintains a balanced diet, though finds moderation with chocolate challenging. 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 Review of Systems - Skin: Reports recurrent urticaria and itching. - Musculoskeletal: Reports muscle weakness associated with previous statin use. - Cardiovascular: Denies any current chest pain or palpitations. - Psychiatric: Reports previous issues with anxiety, particularly following life events such as divorce. Physical Exam General: Cooperative and healthy appearing Nutritional Appearance: Well nourished Orientation/consciousness: Patient oriented x3 Limitations: No limitations Head: Normal to inspection General: Appearance normal, both eyes and all related structures Neck: Normal visual inspection Chest: Normal palpation of entire chest wall Respiratory: Normal respiratory effort Neurology: Patient oriented x3 Results Plan I proposed the avoidance of statins due to previous adverse reactions and discussed alternative therapies like ezetimibe, a nonstatin option with less risk of similar side effects, although potentially less effective. The resolution of current urticarial symptoms will be monitored by her manager market intelligence, and I plan a three-month follow-up to reevaluate these symptoms and consider appropriate lipid management. The patient's routine blood pressure checks at home are acceptable given office hypertension reading. Lifestyle measures will continue to be emphasized to support overall cardiovascular health. Patient was informed and verbally consented to the use of an ambient scribe for clinic note documentation during this visit. Discussion Notes I discussed with the patient the reactions she experienced with previously prescribed statins and nonstatins and the importance of resolving these allergic responses before pursuing alternative lipid-lowering interventions. We agreed on the need for patience, allowing the urticarial symptoms to subside fully before introducing ezetimibe as a nonstatin alternative. Options were weighed according to potential efficacy and side effect profiles, emphasizing the priority of patient safety and comfort. We concluded that follow-up in three months would allow sufficient time for current symptoms to stabilize, and to reassess cholesterol management strategies. We also considered the mild nature of her hypertension and the reliability of her home blood pressure monitoring. Throughout, patient education was provided regarding lifestyle modifications to support cardiovascular wellness and any potential signs warranting expedited follow-up. Patient Instructions - Monitor and manage urticarial symptoms under manager market intelligence care. - Continue regular blood pressure monitoring at home. - Maintain lifestyle habits including swimming and a balanced diet. - Avoid internet searches related to health symptoms to prevent undue anxiety. - Attend follow-up appointment in three months for reassessment.
== END 2024-10-15 11:57 | disposition home or self-care (01) ==
LOC: HO.HMCSH 10:48
PROVIDERS: PCP Internal Medicine; Visit Provider Internal Medicine
DX: F41.9 Anxiety disorder, unspecified (principal); E78.5 Hyperlipidemia, unspecified

== ENCOUNTER → 2024-10-15 10:48 | Outpatient (BNVA) | payer MEDICARE, OTHER, SELFPAY | PROVIDERS: PCP Internal Medicine; Visit Provider Internal Medicine | DX: F41.9 Anxiety disorder, unspecified (principal); E78.5 Hyperlipidemia, unspecified | CPT/HCPCS: 99212 ==

== ENCOUNTER 2024-12-16 08:59 | Outpatient (AMB) | payer MEDICARE, OTHER, SELFPAY ==
--- NOTE | 2024-12-16 09:00 | MHC.PC.OV ---
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 Accompanied by: Self / Same As Patient Allergies erythromycin base Allergy (Intermediate, Verified 12/16/24 10:18) Hives fluoxetine [Prozac] Allergy (Intermediate, Verified 12/16/24 10:18) rash penicillin V Allergy (Intermediate, Verified 12/16/24 10:18) hives Sulfa (Sulfonamide Antibiotics) Allergy (Intermediate, Verified 12/16/24 10:18) hives buspirone [From BuSpar] Adverse Reaction (Intermediate, Verified 12/16/24 10:18) blurred vision SSRI's Allergy (Intermediate, Uncoded 12/16/24 10:18) oral swelling Medication List - Last Reconciled 12/16/24 by Arina Laws PA-C acetaminophen (Tylenol) 325 mg PO QID PRN albuterol sulfate 90 mcg/actuation 1 puff inhalation Q4-6H PRN aspirin (Deya Low Dose Aspirin) 81 mg PO DAILY hydrocortisone 2.5% 1 appl topical TID ibuprofen (Advil) 200 mg PO BID PRN metronidazole 0.75% 1 appl topical BID multivitamin 1 tab PO DAILY omega-3 fatty acids 1,000 mg PO DAILY phytonadione (vitamin K1) 100 mcg PO DAILY prednisone 40 mg (2 x 20 mg) PO DAILY 5 days tolterodine ER 2 mg PO Q24H vit C,D-Qo-xaonc-lutein-zeaxan 250-90-40-1 mg (PreserVision AREDS-2) 1 tab PO BID Tobacco use date assessed: 12/16/24 Fall risk assessment: No Falls in past year Last assessed Fall Risk: 12/16/24 Dental Screening Dental Screen Date: 10/15/24 HPI 3 month follow up HPI Details The patient is a 69-year-old female presenting with ongoing issues related to allergic rhinitis and chronic idiopathic urticaria, resulting in persistent fatigue and brain fog. Approximately two to three weeks ago, the patient reported experiencing aggravated allergy symptoms, characterized by increased itching, fatigue, and cognitive impairment. Initially, she consulted a record cutter concerning her skin condition, who recommended Flor at a dose of 180 mg twice daily, which resulted in excessive sedation without significant symptom relief. Subsequently, the patient visited an communications representative for further evaluation. At that time, there were discussions regarding allergy testing, but specific tests were not performed. Instead, a regimen was proposed involving once-daily Claritin (10 mg) in the morning and Flor with hives at night. Despite these adjustments, the patient continued to experience significant fatigue and brain fog, diminishing her quality of life. The patient also noted that attempts to take Flor and Claritin concurrently induced more pronounced fatigue, which prompted exploration of alternative remedies such as acupuncture, albeit with limited financial feasibility. This consideration also led to discussions around dietary modifications like gluten avoidance, though there is no substantial evidence indicating a food-related allergenic component. As an adjunct to conventional medication, the patient attempted brief use of half doses of Flor, which provided initial relief but was not sustainable. The inclusion of Claritin D was explored with the aim of minimizing sedation and optimizing symptom control. In addition, the patient reports walking approximately 1-2 days weekly but has faced restrictions in swimming due to ear complications. The history of ear issues includes the presence of scar tissue related to prior chronic ear infections, necessitating specific protective measures during swimming activities. The patient's ear, nose, and throat (ENT) history includes past surgical interventions such as ear tube placement, though complications and limited therapeutic efficacy have constrained her prior swimming endeavors. Social History - Engages in physical activity such as walking and swimming, albeit limited by current health concerns. - Manages weight effectively through diet and exercise, having lost 30 pounds. - Utilizes dietary guidance from a public health technician focusing on macro and caloric counting. - Expressed concerns over financial constraints limiting alternative health remedies like acupuncture. [facility] Medical History (Updated 12/16/24 @ 10:25 by Arina Laws PA-C) Chronic idiopathic urticaria Chronic ear infection History of mammogram (~09/21/23) Elevated blood pressure reading Tubular adenoma Chronic low back pain Lumbar herniated disc Neuropathy Anxiety Interstitial cystitis Rash Skin lesions Papilloma of skin Low back pain Interstitial cystitis Hypercholesterolemia Surgical History History of back surgery Hx of tubal ligation Hx of shoulder surgery History of H/O colonoscopy (~10/23/20) Family History Family/Other Liver cancer Brother No problems noted. Social History Housing: House Alcohol intake: never Patient Tobacco Use Status: Never used Tobacco service: No Current occupational status: retired Cognitive needs: No Hearing needs: No Vision needs: Yes (reading glasses) Questionnaire PHQ-9 Over the last 2 weeks, how often have you been bothered by any of the following problems? 1. Little interest or pleasure in doing things: not at all 2. Feeling down, depressed, or hopeless: not at all 3. Trouble falling or staying asleep, or sleeping too much: not at all 4. Feeling tired or having little energy: not at all 5. Poor appetite or overeating: not at all 6. Feeling bad about yourself - or that you are a failure or have let yourself or your family down: not at all 7. Trouble concentrating on things, such as reading the newspaper or watching television: not at all 8. Moving or speaking so slowly that other people could have noticed. Or the opposite - being so fidgety or restless that you have been moving around a lot more than usual: not at all 9. Thoughts that you would be better off or of hurting yourself in some way: not at all Total score: 0 Depression Screening Interpretation: Negative Depression Screening Done: Yes 52462 - PHQ-9 Billing: Yes Source: Developed by Drs. Leo Edmond, Riac Trevizo, Rusty Menjivar and colleagues, with an educational sonia from [employer]. Thrive Questionnaire Date Thrive assessed: 10/15/24 I am a: Patient What is your living situation today?: I have a steady place to live Within the past 12 months, did the food you bought not last and you didn't have the money to get more?: Never true Within the past 12 months, did you worry whether your food would run out before you got money to buy more?: Never true Do you have trouble paying for medicines?: No Do you have trouble getting transportation to medical appointments?: No Do you have trouble paying your heating and electricity bill?: No Do you have trouble taking care of your child, family member or friend?: No Do you have trouble with day-to-day activities such as bathing, preparing meals, shopping, managing finances, etc.?: No Are you currently unemployed and looking for a job?: No Are you interested in more education?: No Please select the resources that you would like help with: None THRIVE Score: 0 AUDIT C Alcohol Use Questionnaire (AUDIT-C) 1. How often do you have a drink containing alcohol?: Never 3. How often do you have six or more drinks on one occasion?: Never Total Score: 0 Score Reviewed/Action Taken: No FELIX-7 AMB Questionnaire FELIX-7 Date FELIX - 7 assessed: 10/15/24 Feeling nervous, anxious, or on edge: 0 = Not at all Not being able to stop or control worryin = Not at all Worrying too much about different things: 0 = Not at all Trouble relaxin = Not at all Being so restless that it is hard to sit still: 0 = Not at all Becoming easily annoyed or irritable: 0 = Not at all Feeling afraid as if something awful might happen: 0 = Not at all Total FELIX-7 score (0-4 normal; 5-9 mild; 10-14 moderate; 15-21 severe): 0 Source: Developed by Drs. Leo Edmond, Rica Trevizo, Rusty Menjivar and colleagues, with an educational sonia from [employer]. FELIX-7 Assessment Billing FELIX-7 Assessment Tool: FELIX-7 Assessment 37126 Review of Systems Const Details: - Constitutional: Reports experiencing fatigue and brain fog. - Dermatologic: Reports itching and urticaria improvements but not resolved. - Ears, nose, throat: Reports ear itches; history of nasal congestion; status post ear tube. - Respiratory: Denies difficulty breathing. - Nervous System: Reports cognitive impairment. Physical exam (Primary Care) Vital Signs: Last Vital Signs Temp 97.6 F 12/16/24 09:01 Pulse 76 12/16/24 09:01 Resp 14 12/16/24 09:01 BP 146/70 H 12/16/24 09:01 Pulse Ox 96 12/16/24 09:01 Oxygen Delivery Method Room Air 12/16/24 09:01 Care Plan Goal for BP management: <140/90 BMI result Body Mass Index 29.1 BMI Assessment/Plan discussion: High BMI High, discussed plan: lifestyle, weight reduction, dietary, physical activity and alcohol moderation Tobacco/Smoking Status: Tobacco use Status Tobacco use date assessed 12/16/24 12/16/24 09:03 Patient Tobacco Use Status Never used Tobacco 12/16/24 09:03 PHQ-9: PHQ-9 Score PHQ-9: Total score 0 12/16/24 09:17 Depression Screening Interpretation: Negative Thrive Assessment: Date of Thrive Assessment Date Thrive assessed 10/15/24 12/16/24 09:03 Const Other: Appearance: Alert. Oriented X3. No acute distress. Head: Normal external exam. Normocephalic. Atraumatic. Eyes: Pupils are equal, round, and reactive to light. Extraocular movements intact. Conjunctiva and sclera normal. Eyelids normal. Throat: Pharynx normal. Uvula midline. Moist mucous membranes. Neck: Normal inspection. Neck supple. Full range of motion. Cardiovascular: Normal heart rate and rhythm. Respiratory: No respiratory distress. Painless inspiration. Back: Full range of motion noted. Skin: Skin warm and dry. Normal skin color. Extremities: Extremities exhibit normal range of motion. Extremities nontender. Coding Level of Care Code Est Pt Level 4 (40522) Complex EM visit Add On G2211 Diagnoses Chronic idiopathic urticaria L50.1 Chronic ear infection H66.90 Additional Codes PHQ-9 - 45138 - PHQ-9 Billing: Yes ([id number]) FELIX-7 Assessment Billing - FELIX-7 Assessment Tool: FELIX-7 Assessment 64050 ([id number]) Time Spent (min) 40 Assessment & Plan Assessment & Plan (1) Chronic idiopathic urticaria: Code(s): L50.1 - Idiopathic urticaria Category: Medical Plan: Patient instructed to speak to her ENT/ Aiane allergy/community ambassador about possibly starting Claritin D instead of normal Claritin D during the day. To ensure that Claritin D can be used along side of Flor or to switch to Claritin D instead of regular Claritin D and Flor. Condition is chronic and stable continue to monitor. (2) Chronic ear infection: Code(s): H66.90 - Otitis media, unspecified, unspecified ear Category: Medical Plan: A new ENT referral is planned to reevaluate and manage chronic ear-related health concerns. Condition is chronic and stable will continue to monitor. Plan Plan Patient was informed and verbally consented to the use of an ambient scribe for clinic note documentation during this visit. 1. Allergies Claritin is being utilized for daytime relief to reduce sedation without sacrificing efficacy, while Flor will continue at night. Dietary modifications have been excluded given the absence of corroborating symptomatology. 2. Chronic Idiopathic Urticaria Continue with current management regimen. Monitor for symptom changes to avoid sedation while controlling hives. 3. Eustachian Tube Dysfunction History Of Ear Infections A new ENT referral is planned to reevaluate and manage chronic ear-related health concerns. 4. History Of Scar Tissue In Left Ear Continue with the use of ear protection when swimming to prevent ear infections. During the visit, I discussed with the patient her ongoing management strategies for allergic rhinitis and chronic idiopathic urticaria. The patient is advised to switch to Claritin D to manage daytime symptoms and improve cognitive clarity while maintaining symptom control overnight with Flor. The management plan is carefully tailored around minimizing sedation and enhancing her quality of life, with close monitoring for changes in symptomatology and fatigue. Furthermore, I have initiated a referral to a newly recommended ENT specialist for comprehensive management of Eustachian tube dysfunction. Finally, anticipatory management regarding dietary restrictions was discussed, and we opted against dietary-related testing based on symptomatic history. Orders: Orders Lipid Panel Today Z00.00 - Encounter for general adult medical examination without abnormal findings Referrals Ear/Nose/Throat Referral H66.90 - Otitis media, unspecified, unspecified ear Patient Instructions: - Begin taking Claritin D in the morning to manage allergy symptoms and enhance alertness. - Continue taking Flor at night to help control hives and avoid daytime sedation. - Schedule an appointment with the referred ENT specialist to discuss ear health and management. - Follow nutritional guidance as discussed, avoiding unnecessary dietary restrictions unless symptoms suggest otherwise. - Monitor symptoms for changes and report any new or worsened symptoms promptly.
[2024-12-16 09:01] VITALS: BP 146/70; PULSE 76; RESP 14; TEMP 36.4; O2SAT 96; BMI 29.1
== END 2024-12-16 09:41 | disposition home or self-care (01) ==
LOC: HO.HMCSH 08:59
PROVIDERS: PCP Internal Medicine; Visit Provider Physician Assistant Medical
DX: L50.1 Idiopathic urticaria (principal); H66.90 Otitis media, unspecified, unspecified ear

== ENCOUNTER → 2024-12-16 08:59 | Outpatient (BNVA) | payer MEDICARE, OTHER, SELFPAY | PROVIDERS: PCP Internal Medicine; Visit Provider Physician Assistant Medical | DX: L50.1 Idiopathic urticaria (principal); H66.92 Otitis media, unspecified, left ear | CPT/HCPCS: 96127; 99212 ==

== ENCOUNTER 2025-01-07 09:13 | Outpatient (REF) | payer MEDICARE, OTHER, SELFPAY ==
[2025-01-07 10:22] LABS: Cholesterol 272 mg/dL (<200); HDL Cholesterol 66 mg/dL (>40); LDL Cholesterol Calculated 180 mg/dL (<100); Triglycerides 133 mg/dL (<150)
== END 2025-01-07 09:14 | disposition home or self-care (01) ==
LOC: HO.LAB 09:13
PROVIDERS: PCP Internal Medicine; Visit Provider Physician Assistant Medical
DX: Z00.00 Encounter for general adult medical examination without abnormal findings (principal); Z13.6 Encounter for screening for cardiovascular disorders
CPT/HCPCS: 36415; 80061

== ENCOUNTER 2025-01-14 09:44 | Outpatient (AMB) | payer MEDICARE, OTHER, SELFPAY ==
--- NOTE | 2025-01-14 09:52 | A.OFFPC_ITS ---
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 Accompanied by: Self / Same As Patient Allergies erythromycin base Allergy (Intermediate, Verified 01/14/25 09:53) Hives fluoxetine [Prozac] Allergy (Intermediate, Verified 01/14/25 09:53) rash penicillin V Allergy (Intermediate, Verified 01/14/25 09:53) hives Sulfa (Sulfonamide Antibiotics) Allergy (Intermediate, Verified 01/14/25 09:53) hives buspirone [From BuSpar] Adverse Reaction (Intermediate, Verified 01/14/25 09:53) blurred vision SSRI's Allergy (Intermediate, Uncoded 01/14/25 09:53) oral swelling Tobacco use date assessed: 01/14/25 Dental Screening Dental Screen Date: 10/15/24 [facility] Medical History Impingement of right shoulder Chronic idiopathic urticaria Chronic ear infection History of mammogram (~09/21/23) Elevated blood pressure reading Tubular adenoma Chronic low back pain Lumbar herniated disc Neuropathy Anxiety Interstitial cystitis Rash Skin lesions Papilloma of skin Low back pain Interstitial cystitis Hypercholesterolemia Surgical History History of back surgery Hx of tubal ligation Hx of shoulder surgery History of H/O colonoscopy (~10/23/20) Family History Family/Other Liver cancer Brother No problems noted. Social History Housing: House Alcohol intake: never Patient Tobacco Use Status: Never used Tobacco service: No Current occupational status: retired Cognitive needs: No Hearing needs: No Vision needs: Yes (reading glasses) Questionnaire PHQ-9 Over the last 2 weeks, how often have you been bothered by any of the following problems? 1. Little interest or pleasure in doing things: not at all 2. Feeling down, depressed, or hopeless: not at all 3. Trouble falling or staying asleep, or sleeping too much: not at all 4. Feeling tired or having little energy: not at all 5. Poor appetite or overeating: not at all 6. Feeling bad about yourself - or that you are a failure or have let yourself or your family down: not at all 7. Trouble concentrating on things, such as reading the newspaper or watching television: not at all 8. Moving or speaking so slowly that other people could have noticed. Or the opposite - being so fidgety or restless that you have been moving around a lot more than usual: not at all 9. Thoughts that you would be better off or of hurting yourself in some way: not at all Total score: 0 Depression Screening Interpretation: Negative Depression Screening Done: Yes 47888 - PHQ-9 Billing: Yes Source: Developed by Drs. Leo Edmond, Rica Trevizo, Rusty Menjivar and colleagues, with an educational sonia from [employer]. Thrive Questionnaire Date Thrive assessed: 12/16/24 I am a: Patient What is your living situation today?: I have a steady place to live Within the past 12 months, did the food you bought not last and you didn't have the money to get more?: Never true Within the past 12 months, did you worry whether your food would run out before you got money to buy more?: Never true Do you have trouble paying for medicines?: No Do you have trouble getting transportation to medical appointments?: No Do you have trouble paying your heating and electricity bill?: No Do you have trouble taking care of your child, family member or friend?: No Do you have trouble with day-to-day activities such as bathing, preparing meals, shopping, managing finances, etc.?: No Are you currently unemployed and looking for a job?: No Are you interested in more education?: No Please select the resources that you would like help with: None THRIVE Score: 0 AUDIT C Alcohol Use Questionnaire (AUDIT-C) 1. How often do you have a drink containing alcohol?: Never 3. How often do you have six or more drinks on one occasion?: Never Total Score: 0 Score Reviewed/Action Taken: No FELIX-7 AMB Questionnaire FELIX-7 Date FELIX - 7 assessed: 12/16/24 Feeling nervous, anxious, or on edge: 0 = Not at all Not being able to stop or control worryin = Not at all Worrying too much about different things: 0 = Not at all Trouble relaxin = Not at all Being so restless that it is hard to sit still: 0 = Not at all Becoming easily annoyed or irritable: 0 = Not at all Feeling afraid as if something awful might happen: 0 = Not at all Total FELIX-7 score (0-4 normal; 5-9 mild; 10-14 moderate; 15-21 severe): 0 Source: Developed by Drs. Leo Edmond, Rica Trevizo, Rusty Menjivar and colleagues, with an educational sonia from [employer]. FELIX-7 Assessment Billing FELIX-7 Assessment Tool: FELIX-7 Assessment 16828 Physical exam (Primary Care) Vital Signs: Last Vital Signs Temp 97.6 F 01/14/25 09:53 Pulse 72 01/14/25 09:53 Resp 14 01/14/25 09:53 BP 145/67 H 01/14/25 09:53 Pulse Ox 98 01/14/25 09:53 Oxygen Delivery Method Room Air 01/14/25 09:53 BMI result Body Mass Index 29.6 Tobacco/Smoking Status: Tobacco use Status Tobacco use date assessed 01/14/25 01/14/25 10:02 Patient Tobacco Use Status Never used Tobacco 01/14/25 10:02 PHQ-9: PHQ-9 Score PHQ-9: Total score 0 01/14/25 10:02 Depression Screening Interpretation: Negative Thrive Assessment: Date of Thrive Assessment Date Thrive assessed 12/16/24 01/14/25 10:02 Coding Level of Care Code Est Pt Level 4 (58660) Complex EM visit Add On G2211 Diagnoses Hyperlipidemia E78.5 Additional Codes FELIX-7 Assessment Billing - FELIX-7 Assessment Tool: FELIX-7 Assessment 89827 ([id number]) PHQ-9 - 37385 - PHQ-9 Billing: Yes ([id number]) Assessment & Plan Assessment & Plan (1) Hyperlipidemia: Code(s): E78.5 - Hyperlipidemia, unspecified Category: Medical Plan: BW shows elevated LDL. Continues to be resistant to taking medications. Cannot tolerate statins. Considered injectables. She prefers to consider after her upcoming surgery. Plan History of Present Illness - The patient is a 70-year-old female presenting with a follow-up on hyperlipidemia and medication plan. - Chronically elevated cholesterol levels with previous hesitancy to initiate statins, due to systemic allergic reaction concerns following an injection prior - Substantial decrease in pruritus over the last few months, attributed partly to reduction in medication and allergen exposure; however, episodic exacerbations remain. - Scheduled follow-up for right shoulder concerns, with surgery planned and interim cortisone management. - Previous medical interactions have defined hypertension well-controlled at home, though clinical measurements tend to present with higher readings. - Symptoms consistent with postmenopausal syndrome pose additional management considerations for allergy-induced pruritus. Social History - Resides in [place], facilitating access to nearby healthcare services for allergy shots. - Recent travel to [place] noted, related to family ties; recent improvements in sleep and general well-being following the travel experience. - No tobacco or alcohol use reported. - Initial significant weight loss (30 pounds) noted in prior years, with current stability in weight. Review of Systems - Dermatologic: Reports significant reduction in generalized itching - Cardiovascular: Denies chest pain or shortness of breath; reports controlled hypertension at home - Musculoskeletal: Reports shoulder pain, potentially leading to surgical intervention - Neurological: Reports resolution of tingling or worrying symptoms after discontinuation of Nexletol - Immunologic: Concerns about potential allergic reactions to new medications - Endocrine: Reports postmenopausal symptoms - Overall Health: Denies substance use such as smoking or alcohol Physical Exam General: Cooperative and healthy appearing Nutritional Appearance: Well nourished Orientation/consciousness: Patient oriented x3 Limitations: No limitations Head: Normal to inspection General: Appearance normal, both eyes and all related structures Neck: Normal visual inspection Chest: Normal palpation of entire chest wall Respiratory: N ormal respiratory effort Neurology: Patient oriented x3, but patient reports nervousness about taking new medications due to past allergic reactions. Results - Labs: Reports high LDL cholesterol with significant elevation from prior results; noted improvement in HDL cholesterol from 40 to 66. - Labs: Hypertension noted with home monitors indicating BP levels 125/63 and 120/70, and office measurements showing 146 systolic. - Procedures: Upcoming allergy panel screening scheduled. Plan 1. Hyperlipidemia - Patient choices include monitoring and reassessment of cholesterol levels, with alternatives like Repatha considered if willing, after allergy stabilization. 2. Hypertension - Maintain home blood pressure monitoring and report discrepancies. 3. Right Shoulder Rotator Cuff Tear - Cortisone injection planned; surgery targeted in the following month, with orthopedic follow-up. 4. Pruritus - Management aligned with uncertainty regarding future therapy trials, pending allergy panel enrollment. 5. Allergies - Anticipate initiation of panel analysis to ascertain specific allergens responsible for noted symptoms. 6. Postmenopausal Syndrome - Embed therapeutic approaches to minimize symptomatology manifested as systemic reactions. Discussion Notes Today we had a thorough discussion about the patient's ongoing hyperlipidemia management, evaluating options in light of previous allergic reactions impacting the patient's willingness to start statin therapy. I explained the potential benefits of Repatha as a viable alternative for lipid-lowering, assessing her risk and providing a safety net with another allergy panel scheduled. An important conversation was had regarding her controlled home-measured blood pressure compared to office readings and acknowledging the difference likely due to situational anxiety. Preparations for the scheduled shoulder surgery were confirmed, with ongoing cortisone injections as supportive therapy. I emphasized lifestyle adjustments appropriate for her condition, including postmenopausal symptom management contributing to previous allergic manifestations. We agreed on the importance of careful adjustment of her treatment plan, understanding her cautious approach due to her personal health concerns and upcoming surgical treatments. Patient Instructions - Continue monitoring blood pressure at home and report any significant changes. - Follow all pre-surgical and post-surgical instructions related to the upcoming shoulder surgery. - Attend scheduled allergy panel on March 24 to identify potential allergens. - Return to discuss hyperlipidemia six months from now, considering options after surgery. - Consistently practice lifestyle and dietary modifications to manage cholesterol levels. - Report any new symptoms or concerns that may develop following current treatments.
[2025-01-14 09:53] VITALS: BP 145/67; PULSE 72; RESP 14; TEMP 36.4; O2SAT 98; BMI 29.6
--- OUTSIDE RECORDS SUMMARY | 2025-01-14 10:47 | XMS_ITS | Data Portability ---
Author Organization [facility], [facility] Address [address] [place] [address] Care Team Providers Care Data Conversion Analyst Name Role Phone JERSON ALEJANDRO Primary Care Provider [phone] Assessment No assessment recorded. Plan of Treatment Reminders Order Date Submit Date Provider Last Modified By Organization Details Last Modified Time Details Appointments RECHECK 15 2024 09:15A M Adam Werner PA-C Not available Not available Not available Lab None recorded . Referral None recorded . Procedures None recorded . Surgeries None recorded . Imaging XR, cervical spine, 1 view - room 119 lateral cervical 2023 024 [facility], [address], [place], [address], 04/16/2024 08:44:19 XR, shoulder , 2 or more view - room 119 bilatera l shoulder /lateral cervical [address] [facility] Office, [address], [address], [place], [address], 04/16/2024 08:44:00 Medication Orders None recorded . Patient TargetsNo targets recorded. Patient InstructionsNo instructions recorded. Reason for Referral None Reported. Results Created Date Observation Date Name Description Value Unit Range Abnormal Flag Note LastModifiedBy Organization Detail LastModifiedTime 03/30/20 24 03/30/2024 XR, shoul juan, 2 or more view http:/ [email or web address] ?Encry pted=s hAaTro YD8dLq bEUv6g %2BXZw aYqtaq 0bqfl% 2Fg9IQ a4ajBk vP9nXo QUaueC m3YtLR FvZlgJ JJ8mAn HZtai3 9d3423 AC0Krb HiDUqG hKiQtr MwF INTERFACE [facility] [address] [facility] [address] [address], [place], [address], 03/30/2024 08:44:32 03/30/20 24 03/30/2024 XR, shoul juan, 2 or more view [email or web address]:/ [email or web address] ?Encry pted=s hAaTro YD8dLq bEUv6g %2BXZw aYqtaq 0bqfl% 2Fg9IQ a4ajBk vP9nXo QUaueC m3YtLR FvZlgJ JJ8mAn HZtai3 0p3886 AC0Krb HiDUqG hKiQtr MwF INTERFACE [facility] [address] [facility] [address], [place], [address], 03/30/2024 08:44:33 04/16/20 24 03/30/2024 XR, cervi stacy spine , 1 view [email or web address]:/ [email or web address] ?Encry pted=s hAaTro YD8dLq bEUv6g %2BXZw aYqtaq 0bqfl% 2Fg9IQ a4ajBk vP9nXo QUaueC m3YtLR FvZlgJ JJ8mAn HZtai3 3u6224 AC0Krb HiCWaS vKiQtr MwF INTERFACE [facility] [address] [facility] [facility] [address], [place], [address], 04/16/2024 08:44:19 Result Notes Documentation Provider Name and Address Organization Details Recorded Time Xr, Shoulder, 2 Or More View : [email or web address] Encrypted=prFyZtrTA8jUieJ Uv6g%7CBCedWrpnv0mpdy%2Fg 8SMu3chFqkS2zExWQugoTv1Wi EOAiIliJIL9iDdMYhjy97a692 9YC8YvzMhWBfMzNbMjjPcS Not Available [facility] 03/30/2024 08:44: 32 Xr, Shoulder, 2 Or More View : [email or web address] Encrypted=crLkKxuSO3pMlpT Uv6g%6ABBzeVsodg1xnbj%2Fg 0BJp3rmNwjL0mElQZjouLq1Ii ULVzDdvSDV3vDwSBdeo62r152 3RW6HxdMwNRzSlAfTbuVnY Not Available [facility] 03/30/2024 08:44: 34 Xr, Cervical Spine, 1 View : [email or web address] Encrypted=adCpMxcGP1oTgxF Uv6g%1SFRzmDjmkf3infa%2Fg 2CUt9vqRqgI5tQvZLzpgBd5Ez NQKmVqsBGR4fPhHAzyd24a116 5WJ2QwgZsSRfJjCyJyqMeU Not Available [facility] 04/16/2024 08:44: 20 Problems Name Problem SNOMED Code Status Onset Date Resolution Date Notes Provider Name and Address Organization Details Recorded Time Impingement syndrome of right shoulder region 3793555865911 02 Active 2023 Adam Werner PA-C [address], [place], [address], [facility] 4 06:40:55 Bilateral shoulder joint pain 7881935197985 9104 Active 2023 Adam Werner PA-C [address], [place], [address], [facility] 4 08:31:45 Neck pain 67565398 Active 2023 Adam Werner PA-C [address], [place], [address], [facility] 4 08:32:36 Nontraumati c partial rupture of right rotator cuff 9499976784157 109 Active 2024 Adam Werner PA-C [address], [place], [address], [facility] 5 08:33:28 Problem Notes None recorded. Procedures Surgical History Date Name Laterality Status Provider Name and Address Organization Details Recorded Time 5 Sports Shoulder 4&1 completed Adam Werner PA-C [address], [place], [address], [facility] 11/05/2024 09:13:42 4 Sports Shoulder completed Adam Werner PA-C [address], [place], [address], [facility] 03/30/2024 08:54:58 Imaging Results None recorded. Procedure Notes None recorded. Medical Equipment None Reported. Allergies Allergen ID Allergen Name Allergen Category Reaction Reaction Severity Criticality Documentation Date Start Date Code Code System Note Provider Name and Address Organization Details Recorded Time 753207 Product containin g penicilli n (product) medicatio n Not available Not available Not available 03/30/2024 45171 8001 SNOMED Adam Wenrer PA-C [address], [place], [address], [facility] 4 08:29:57 248594 erythromy em medicatio n Not available Not available Not available 03/30/2024 4053 RxNorm Adam Werner PA-C [address], [place], [address], [facility] 4 08:30:04 415428 Substance with sulfonami de structure and antibacte rial mechanism of action (substanc e) medicatio n Not available Not available Not available 03/30/2024 15635 8003 SNOMED Adam Werner PA-C [address], [place], [address], [facility] 4 08:30:10 Medications Name Sig Start Date Stop Date Status Note LastModified by Organization Details LastModified Time tolterodine ER 2 mg capsule,exte nded release 24 hr TAKE 1 CAPSULE BY MOUTH EVERY DAY active Not Available Not Available No t Available doxycycline hyclate 100 mg capsule PLEASE SEE ATTACHED FOR DETAILED DIRECTIONS active Not Available Not Available N ot Available tizanidine 2 mg tablet PLEASE SEE ATTACHED FOR DETAILED DIRECTIONS active Not Available Not Available N ot Available clindamycin HCl 300 mg capsule TAKE 2 CAPSULES BY MOUTH NOW THEN 1 CAPSULES 3 TIMES A DAY UNTIL GONE. START MORNING OF SURGERY active Not Available Not Available No t Available atorvastatin 10 mg tablet TAKE 1 TABLET BY MOUTH EVERY DAY FOR 90 DAYS active Not Available Not Available No t Available azithromycin 250 mg tablet TAKE 2 TABLETS BY MOUTH TODAY, THEN TAKE 1 TABLET DAILY FOR 4 DAYS DIRECTED active Not Available Not Available No t Available Lidocaine Viscous 2 % mucosal solution TAKE 5 ML (MUCOUS MEMBRANE) 4 TIMES PER DAY (PAIN) FOR 5 DAYS SWISH AND SPIT. active Not Available Not Available No t Available benzonatate 200 mg capsule TAKE 1 CAPSULE 2 TO 3 TIMES PER DAY FOR COUGH FOR 5 DAYS active Not Available Not Available No t Available valacyclovir 1 gram tablet TAKE 2 TABLETS BY MOUTH TWICE A DAY FOR 1 DAY active Not Available Not Available No t Available tolterodine ER 4 mg capsule,exte nded release 24 hr TAKE 1 CAPSULE BY MOUTH EVERY DAY active Not Available Not Available No t Available prednisone 20 mg tablet TAKE 2 TABS BY MOUTH DAILY FOR 5 DAYS active Not Available Not Available No t Available clindamycin HCl 150 mg capsule TAKE 1 CAPSULE BY MOUTH EVERY 8 HOURS UNTIL FINISHED active Not Available Not Available No t Available hydroxyzine HCl 50 mg tablet TAKE 1 TABLET BY MOUTH EVERY 6 TO 8 HOURS NEEDED FOR ITCHING active Not Available Not Available No t Available ciprofloxaci n 500 mg tablet TAKE 1 TABLET BY MOUTH EVERY 12 HOURS FOR 3 DAYS. active Not Available Not Available Not Available doxycycline monohydrate 100 mg tablet TAKE 1 TABLET BY MOUTH TWICE A DAY FOR 7 DAYS active Not Available Not Available No t Available ketorolac 0.5 % eye drops INSTILL 1 DROP INTO RIGHT EYE TWICE A DAY active Not Available Not Available Not Available phenazopyrid ine 100 mg tablet TAKE 1 TABLET BY MOUTH 3 TIMES A DAY FOR 2 DAYS FOR PAIN active Not Available Not Available No t Available benzonatate 100 mg capsule TAKE 1 CAPSULE (ORAL) 3 TIMES PER DAY (COUGH) FOR 10 DAYS active Not Available Not Available Not Available metronidazol e 0.75 % topical cream 1 APPL TOPICALLY 2 TIMES A DAY active Not Available Not Available Not Available hydrocortiso ne 2.5 % topical cream APPLY TO INFRAMAMMAR Y AREA TWICE A DAY NEEDED active Not Available Not Available No t Available albuterol sulfate HFA 90 mcg/actuatio n aerosol inhaler TAKE 2 PUFFS (INHALATION ) 4 TIMES PER DAY (SHORTNESS OF BREATH OR WHEEZING) FOR 14 DAYS active Not Available Not Available Not Available hydrocortiso ne 2.5 % topical ointment APPLY TO AFFECTED AREA 3 TIMES A DAY active Not Available Not Available Not Available neomycin 3.5 mg/g-polymyx in B 10,000 unit/g-dexam eth 0.1 % eye oint APPLY INTO BOTH EYES AT BEDTIME active Not Available Not Available N ot Available cyclobenzapr ine 5 mg tablet TAKE 1 TABLET BY MOUTH THREE TIMES A DAY NEEDED active Not Available Not Available No t Available nitrofuranto in monohydrate/ macrocrystal s 100 mg capsule TAKE 1 CAPSULE (100 MG) ORALLY EVERY 12 HOURS FOR 7 DAYS MUST ADMINISTER WITH A MEAL/FOOD active Not Available Not Available No t Available bromfenac 0.07 % eye drops INSTILL 1 DROP INTO RIGHT EYE EVERY DAY active Not Available Not Available No t Available Yuvafem 10 mcg vaginal tablet INSERT 1 TABLET VAGINALLY EVERY MONDAY AND MONDAY active Not Available Not Available No t Available Nexletol 180 mg tablet TAKE 1 TABLET BY MOUTH EVERY DAY FOR HYPERLIPIDE ARIES active Not Available Not Available No t Available Paxlovid 300 mg (150 mg x 2)-100 mg tablets in a dose pack TAKE 3 TABLETS BY MOUTH TWICE A DAY FOR 5 DAYS active Not Available Not Available No t Available Vitals Date Recorded Body height Body mass index (BMI) Body weight Provider Name and Address Organization Details Last Updated DateTime 11/05/2024 170.18 cm 27.6 kg/m2 61571.26 g Jaqui Huerta [place] [facility] 11/05/2024 08:59:35 Date Recorded Body height Body mass index (BMI) Body weight Provider Name and Address Organization Details Last Updated DateTime 03/30/2024 170.18 cm 27.6 kg/m2 00584.26 g Adam Werner PA-C [facility] [address], [place], [address], [place] [facility] [place] [facility] 03/30/2024 08:29:32 Social History None recorded. Functional Status None recorded. Mental Status None recorded. Family History Nothing Reported. Medical History Condition Response Nerve Disorders Y Cholesterol Y Asthma Y Gynecological HistoryNo gynecological history recorded. Obstetrics History GPAL:G 0 P 0 0 0 0 Past Encounters Encounter ID Performer Location Encounter Start Date Encounter Closed Date Diagnosis/Indication Diagnosis SNOMED-CT Code Diagnosis ICD10 Code Diagnosis Note [id number] FRAN Gibson [address] [place] [address] 03/30/2024 08:05:49 04/16/2024 08:44:00 Impingement syndrome of right shoulder region 1270641254 66377 M75.41 Bilateral shoulder joint pain 0073928966 5823914 M25.511 M25.512 Neck pain 41599681 M54.2 [id number] FRAN Gibson [facility] [address] [place] [address] 11/05/2024 08:44:19 11/15/2024 08:44:13 Nontraumatic partial rupture of right rotator cuff 6625517249 219700 M75.111 Health Concerns Section Related Observation LastModified by Organization Detai ls LastModified Time None Recorded Concern Status LastModified by Organization Details LastModified Time None Recorded Advance Directives Directive None Recorded Payers Insurance Date Sequence Insurance Name Policy Number Policy Jarrell Covered Member ID Jarrell Member ID Guarantor Name 11/15/2024 2 [facility] INDEMNITY PLAN (MEDICARE SUPPLEMENT) [id number] Peter Guillory [id number] Kit Guillory 11/02/2024 1 [place] [employer] Kit Guillory [id number] Kit Guillory Notes Date Note Type Note Provider Name and Address Organization Details Recorded Time 03/30/2024 text/html I am seeing the patient today under the supervision of Dr. Garibay who was available but who did not see the patient.CLINICAL HISTORY: Patient is a 69-year-old female who presents to the office today with chief complaint of right shoulder pain. She reports symptoms been ongoing for several months in duration exacerbated with any type of overhead use repetitive lifting and in particular is bothersome at nighttime. Past history is notable for prior left shoulder SAD/DCE 2003 Dr. Ramirez. 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 Gait is symmetric. No significant swelling, warmth or erythema about either shoulder. Examination of the right shoulder demonstrates forward elevation 175? ? ?, external rotates 45? ? ?, internal rotates back pocket with mild discomfort, mild crepitance with patella manipulation, AC joint tenderness, rotator cuff strength 4/5 with horizontal elevation, 4/5 external rotation, 4/5 resisted belly press test, bicipital groove is mildly irritable, no apprehension in positions of instability, normal scapular mechanics. Cervical Exam demonstrates limited ROM without radicular symptoms. Peripheral, vascular, lymphatic examination, skin, neurologic coordination, reflexes, sensation are within normal limits.X-ray findings: 4 views ordered and independently reviewed previously at [facility] of the left and right shoulder findings include: Type II acromion, well-preserved glenohumeral joint, moderate AC joint arthritis, cystic changes involving the greater tuberosity involving the right shoulder. Lateral C-spine x-ray findings include mild multilevel degenerative disc disease throughout. ASSESSMENT: Right shoulder impingement, possible small partial-thickness rotator cuff tear. 2. Left shoulder impingement #3. Mild cervical spine DJD. PLAN: Treatment options discussed with the patient, ultimately she would like to try to manage her symptoms is not interested in pursuing MRI imaging at this time. For that reason I did recommend continued physical therapy, recommended performed subacromial space injection today. If symptoms persist I would have a low threshold to consider MRI imaging if she is at a point time she would want to talk about surgery. [employer] speech recognition ice delivery driver software was used to create portions of this document. An attempt at proofreading has been made to minimize errors. Please call for corrections Adam Werner PA-C [address] [place] [address], [place], [address], [facility] - [facility] 03/30/2024 09:01:08 11/05/2024 text/html I am seeing the patient today under the supervision of Dr. Menon who was available but who did not see the patient. CLINICAL HISTORY: Patient is a 69-year-old female who presents to the office today with chief complaint of right shoulder pain. She reports symptoms been ongoing for several months in duration exacerbated with any type of overhead use repetitive lifting and in particular is bothersome at nighttime. Past history is notable for prior left shoulder SAD/DCE 2003 Dr. Ramirez. 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 She is scheduled to be traveling to the [place] last fall, we had a brief conversation about her candidacy for right shoulder SAD/DCE as a more definitive care option in the future. PHYSICAL FINDINGSThe patient is well appearing, in no apparent distress, alert and oriented to person, place and time. Gait is symmetric. No significant swelling, warmth or erythema about either shoulder. Examination of the right shoulder demonstrates forward elevation 175? ? ?, external rotates 45? ? ?, internal rotates back pocket with mild discomfort, mild crepitance with patella manipulation, AC joint tenderness, rotator cuff strength 4/5 with horizontal elevation, 4/5 external rotation, 4/5 resisted belly press test, bicipital groove is mildly irritable, no apprehension in positions of instability, normal scapular mechanics. Cervical Exam demonstrates limited ROM without radicular symptoms. Peripheral, vascular, lymphatic examination, skin, neurologic coordination, reflexes, sensation are within normal limits.X-ray findings: 4 views ordered and independently reviewed previously at [facility] of the left and right shoulder findings include: Type II acromion, well-preserved glenohumeral joint, moderate AC joint arthritis, cystic changes involving the greater tuberosity involving the right shoulder. Lateral C-spine x-ray findings include mild multilevel degenerative disc disease throughout. ASSESSMENT: Right shoulder impingement, possible small partial-thickness rotator cuff tear.2. Left shoulder impingement #3. Mild cervical spine DJD. PLAN: Treatment options discussed with the patient, we discussed options going forward if her symptoms do return in the fall I would recommend scheduling MRI scan at that time with the anticipation based on those results discussion regarding right shoulder surgery. Adam Werner PA-C [address], [place], [address], [facility] - [facility] 11/05/2024 09:14:11 OBGyn Episode No OBEpisode recorded.
== END 2025-01-14 10:37 | disposition home or self-care (01) ==
LOC: HO.HMCSH 09:44
PROVIDERS: PCP Internal Medicine; Visit Provider Internal Medicine
DX: E78.5 Hyperlipidemia, unspecified (principal)

== ENCOUNTER → 2025-01-14 09:44 | Outpatient (BNVA) | payer MEDICARE, OTHER, SELFPAY | PROVIDERS: PCP Internal Medicine; Visit Provider Internal Medicine | DX: E78.5 Hyperlipidemia, unspecified (principal) | CPT/HCPCS: 96127; 99212 ==

== ENCOUNTER 2025-07-15 10:01 | Outpatient (AMB) | payer MEDICARE, OTHER, SELFPAY ==
[2025-07-15 10:22] VITALS: BP 144/65; PULSE 84; RESP 14; TEMP 36.6; O2SAT 97; BMI 29.3
--- NOTE | 2025-07-15 10:22 | A.OFFPC_ITS ---
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: No Accompanied by: Self / Same As Patient Allergies erythromycin base Allergy (Intermediate, Verified 07/15/25 10:23) Hives fluoxetine (Prozac) Allergy (Intermediate, Verified 07/15/25 10:23) rash penicillin V Allergy (Intermediate, Verified 07/15/25 10:23) hives Sulfa (Sulfonamide Antibiotics) Allergy (Intermediate, Verified 07/15/25 10:23) hives buspirone (From BuSpar) Adverse Reaction (Intermediate, Verified 07/15/25 10:23) blurred vision SSRI's Allergy (Intermediate, Uncoded 07/15/25 10:23) oral swelling Tobacco use date assessed: 01/14/25 Dental Screening Dental Screen Date: 10/15/24 HPI HPI Comments History of Present Illness Details History of Present Illness - The patient is a 70 year old female pr esenting for follow-up for management of hypercholesterolemia. - Hypercholesterolemia: The patient has a history of high cholesterol with an LDL of 180 in July. - She has a family history of high gabe sterol from her father. - She states she has a history of reacti ng to statins, specifically atorvastatin and another one she identified as 'Mexelet', with severe pruritus lasting seven months and tongue swelling. - She is not interested in trying non-st atin oral medications due to her prior reactions. - Chronic Back and Shoulder Pain: The shannon dick reports chronic back issues and tailbone pain that made it difficult to sit. - An MRI of her back revealed scar tissu e reaction on L4-5 and narrowing at L5- S1. - She received an injection at L5-S1 on May 24, which improved her pain from a 10/10 to a 5/10. - A surgical consultation at [facility] determined her back condition was not surgery-worthy, and she is continuing with physical therapy as maintenance. - She also has two small rotator cuff te ars in her shoulder, and a planned surgery was postponed; she may now have it in December. - Allergies: The patient reports that he r pruritus has resolved. - She has a new finishing range feeder and had to res tart her immunotherapy shots at a lower dose after an allergic reaction, now receiving them every 12 days. - Past Medical History: The patient rece ntly had COVID-19. - Health Maintenance: The patient is up to date on her mammogram and has a colonoscopy due in [address] Latham due to her father's history of precancerous colon polyps. - Her current medications include Tyleno l, low-dose aspirin, multivitamin, omega fatty acids, tolterodine for bladder control, and Yuvafem for vaginal dryness. - She has albuterol and metronidazole on hand but is not currently using them. Social History - Functional Status: The patient reports that during a prior episode of severe pruritus, her quality of life was significantly diminished to the point she cou ld barely drive or prepare food. Results - Labs: LDL was 180 in July. - Imaging: An MRI of the back showed sca r tissue reaction on L4 and L5, and narrowing of L5 and S1. [facility] Medical History COVID-19 Impingement of right shoulder Chronic idiopathic urticaria Chronic ear infection History of mammogram (~09/21/23) Elevated blood pressure reading Tubular adenoma Chronic low back pain Lumbar herniated disc Neuropathy Anxiety Interstitial cystitis Rash Skin lesions Papilloma of skin Low back pain Interstitial cystitis Hypercholesterolemia Surgical History History of back surgery Hx of tubal ligation Hx of shoulder surgery History of H/O colonoscopy (~10/23/20) Family History Family/Other Liver cancer Brother No problems noted. Social History Housing: House Alcohol intake: never Patient Tobacco Use Status: Never used Tobacco service: No Current occupational status: retired Cognitive needs: No Hearing needs: No Vision needs: Yes (reading glasses) Questionnaire PHQ-9 Over the last 2 weeks, how often have you been bothered by any of the following problems? 1. Little interest or pleasure in doing things: not at all 2. Feeling down, depressed, or hopeless: not at all 3. Trouble falling or staying asleep, or sleeping too much: not at all 4. Feeling tired or having little energy: not at all 5. Poor appetite or overeating: not at all 6. Feeling bad about yourself - or that you are a failure or have let yourself or your family down: not at all 7. Trouble concentrating on things, such as reading the newspaper or watching television: not at all 8. Moving or speaking so slowly that other people could have noticed. Or the opposite - being so fidgety or restless that you have been moving around a lot more than usual: not at all 9. Thoughts that you would be better off or of hurting yourself in some way: not at all Total score: 0 Depression Screening Interpretation: Negative Depression Screening Done: Yes 80652 - PHQ-9 Billing: Yes Source: Developed by Drs. Leo Edmond, Rica Trevizo, Rusty Menjivar and colleagues, with an educational sonia from [employer] Thrive Questionnaire Date Thrive assessed: 12/16/24 I am a: Patient What is your living situation today?: I have a steady place to live Within the past 12 months, did the food you bought not last and you didn't have the money to get more?: Never true Within the past 12 months, did you worry whether your food would run out before you got money to buy more?: Never true Do you have trouble paying for medicines?: No Do you have trouble getting transportation to medical appointments?: No Do you have trouble paying your heating and electricity bill?: No Do you have trouble taking care of your child, family member or friend?: No Do you have trouble with day-to-day activities such as bathing, preparing meals, shopping, managing finances, etc.?: No Are you currently unemployed and looking for a job?: No Are you interested in more education?: No Please select the resources that you would like help with: None THRIVE Score: 0 AUDIT C Alcohol Use Questionnaire (AUDIT-C) 1. How often do you have a drink containing alcohol?: Never 3. How often do you have six or more drinks on one occasion?: Never Total Score: 0 Score Reviewed/Action Taken: No FELIX-7 AMB Questionnaire FELIX-7 Date FELIX - 7 assessed: 12/16/24 Feeling nervous, anxious, or on edge: 0 = Not at all Not being able to stop or control worryin = Not at all Worrying too much about different things: 0 = Not at all Trouble relaxin = Not at all Being so restless that it is hard to sit still: 0 = Not at all Becoming easily annoyed or irritable: 0 = Not at all Feeling afraid as if something awful might happen: 0 = Not at all Total FELIX-7 score (0-4 normal; 5-9 mild; 10-14 moderate; 15-21 severe): 0 Source: Developed by Drs. Leo Edmond, Rica Trevizo, Rusty Menjivar and colleagues, with an educational sonia from [employer] FELIX-7 Assessment Billing FELIX-7 Assessment Tool: FELIX-7 Assessment 99114 Review of Systems Narrative Review of Systems - Musculoskeletal: Reports chronic back pain with recent improvement, chronic shoulder pain, and a history of tailbone pain. - Dermatologic: Denies current pruritus. - Respiratory: Denies current use of albuterol inhaler. - Genitourinary: Reports use of tolterodine for overactive bladder and Yuvafem for vaginal dryness. - Allergic/Immunologic: Reports tongue swelling and pruritus as an immediate reaction to statins. Physical exam (Primary Care) Vital Signs: Last Vital Signs Temp 97.8 F 07/15/25 10:22 Pulse 84 07/15/25 10:22 Resp 14 07/15/25 10:22 BP 144/65 H 07/15/25 10:22 Pulse Ox 97 07/15/25 10:22 Oxygen Delivery Method Room Air 07/15/25 10:22 BMI result Body Mass Index 29.3 Tobacco/Smoking Status: Tobacco use Status Tobacco use date assessed 01/14/25 07/15/25 10:24 Patient Tobacco Use Status Never used Tobacco 07/15/25 10:24 PHQ-9: PHQ-9 Score PHQ-9: Total score 0 07/15/25 10:39 Depression Screening Interpretation: Negative Thrive Assessment: Date of Thrive Assessment Date Thrive assessed 12/16/24 07/15/25 10:24 Narrative Physical Exam General: Cooperative and healthy appearing Nutritional Appearance: Well nourished Orientation/consciousness: Patient oriented x3 Limitations: No limitations Head: Normal to inspection General: Appearance normal, both eyes and all related structures Neck: Normal visual inspection Chest: Normal palpation of entire chest wall Respiratory: Normal respiratory effort Neurology: Patient oriented x3 Coding Level of Care Code Est Pt Level 4 (42120) Add On Problem Visit Only Diagnoses Hyperlipidemia E78.5 Additional Codes FELIX-7 Assessment Billing - FELIX-7 Assessment Tool: FELIX-7 Assessment 24227 ([id number]) PHQ-9 - 89533 - PHQ-9 Billing: Yes ([id number]) Assessment & Plan Assessment & Plan (1) Hyperlipidemia: Code(s): E78.5 - Hyperlipidemia, unspecified Category: Medical Plan Plan - Hypercholesterolemia: The patient is hesitant to start new medications due to a history of severe allergic reactions to statins, including pruritus and tongue swelling. - The risks of untreated high cholesterol, including stroke and heart disease, were discussed. - She has agreed to consider the injectable medication Repatha, but wishes to wait until July to begin, after the holidays. - The risk of itching with Repatha (1-5 in 100 people) was explained, and it was noted that an allergic reaction is possible but the medications are different. - The long-acting nature of the monthly injection was also discussed. - Will order a fasting lipid panel to recheck her cholesterol levels. - Chronic Pain: The patient will continue physical therapy for her back pain. - She may proceed with shoulder surgery for her rotator cuff tears in December. - Health Maintenance: The patient will continue with her current medications. - She does not require any refills at this time. - She is scheduled for a colonoscopy in 2025. Discussion Notes I discussed with the patient her high cholesterol and the associated increased risk for stroke and heart disease. We reviewed her history of intolerance to statins, which caused severe pruritus and tongue swelling. I presented the options for treatment, including diet, exercise, and medication. Given her cholesterol level, medication is necessary. We discussed the injectable option, Repatha, and that while it is a different class of drug, an allergic reaction is still possible. I informed her that itching is a known side effect in 1 to 5 people out of 100. I also explained that the injection stays in the body for a month. The patient expressed significant fear of another severe reaction but ultimately agreed to try the injectable. She has elected to start in July and will call the office when she is ready. I will order a fasting blood test to re- evaluate her cholesterol levels. Patient Instructions - Please go for a fasting blood test to check your cholesterol levels. - Your high cholesterol puts you at a higher risk for a stroke or heart disease, and it is important to treat it. - Continue with your diet and exercise. - Please call our office in July when you are ready to start the injectable cholesterol medication (Repatha). - Continue with physical therapy for your back. - Ensure you follow up for your colonoscopy, which is due in 2025.
--- OUTSIDE RECORDS SUMMARY | 2025-07-15 12:13 | XMS_ITS | Clinical Summary ---
Author Organization [facility] Address [address] [place] [id number] Phone Care Team Providers Care Curriculum And Assessment Coordinator Name Role Phone Vincenzo Hussein MD Primary Care Provid er Allergies Active Allergy Reactions Criticality Noted Date Comments Erythromycin Unknown 08/28/2014 Penicillin Unknown 08/28/2014 Sulfa (Sulfonamide Antibiotics) Unknown 08/01 Medications famotidine (PEPCID) 10 mg/mL injection Acti ve aspirin (ASPIR-81 ORAL) Take by mouth. Active cholecalciferol (VITAMIN D3) 10,000 unit tablet Take 10,000 Units by mouth daily. Active ascorbic acid, vitamin C, (VITAMIN C) 250 MG tablet Take 250 mg by mouth daily. Active glucosamine 500 mg Cap Take 500 mg by mouth 3 (three) times a day. Active omega 5-yll-jwl-fish oil 1,000 mg (120 mg-180 mg) Cap Take 1 capsule by mouth daily. Active phytonadione, vitamin K1, (PHYTONADIONE) 1 mg/0.5 mL Soln Active Immunizations Immunization Administration Dates Next Due Influenza High-Dose Trivalent Preservative Free IM 05/04/2018 Influenza Quadrivalent Preservative Free IM 04/01,04/16/2016 Tdap 11/19/2018 Family History Medical History Relation Comments Liver cancer Brother Parkinson's disease Father Skin cancer Father lip No Known Problems Maternal Grandfather No Known Problems Maternal Grandmother Asthma Mother COPD Mother CV disease Mother Hip fracture Mother No Known Problems Paternal Grandfather No Known Problems Paternal Grandmother Depression Sister other mental hea lth issues. Relation Status Comments Brother (Age 63) Father Maternal Grandfather Maternal Grandmother Mother (Age 73) Paternal Grandfather Paternal Grandmother Sister Alive Social History Tobacco Use Types Packs/Day Years Used Date Smoking Tobacco: Never Smokeless Tobacco: Never Alcohol Use Standard Drinks/Week Comments Never 0 (1 standard drink = 0.6 oz pur e alcohol) Education Answer Date Recorded Are you interested in more education? Not on oscar e 11/25/2022 Are you concerned about learning? Not on file 11/25/2022 No 11/25/2022 No 11/25/2022 Digital Access Answer Date Recorded No 12/24/2022 No 12/24/2022 Reliable internet access at home? Not on file 12/24/2022 Device with a working camera? Not on file Comments No Sex and Gender Information Value Date Recorded Sex Assigned at Female 04/09/2025 4:33 PM EDT Legal Sex Female 10:36 PM EDT Gender Identity Female 04/09/2025 4:33 PM EDT Sexual Orientation Straight 04/09/2025 4: 33 PM EDT Occupation Industry Job Start Date Job End Date [employer] Not on file Not on file Not on file Last Filed Vital Signs Vital Sign Reading Time Taken Comments Blood Pressure 124/78 03/27/2020 9:12 AM EDT Pulse - - Temperature - - Respiratory Rate - - Oxygen Saturation - - Inhaled Oxygen Concentration - - Weight 91.6 kg (202 lb) 03/27/2020 9:12 AM EDT Height 170.2 cm (5' 7 ) 03/27/2020 9:12 AM EDT Body Mass Index 31.64 03/27/2020 9:12 AM EDT Plan of Treatment Health Maintenance Due Date Last Done Comments LIPID PANEL 1953 DEPRESSION SCREENING 1965 HEPATITIS C SCREENING 1971 COLOGUARD 1998 COLONOSCOPY 1998 COLORECTAL CANCER SCREENING 1998 FIT TEST 1998 FOBT 1998 SIGMOIDOSCOPY 1998 VIRTUAL COLONOSCOPY 1998 PNEUMOCOCCAL VACCINES (50+ years) (1 of 1 - PCV) 2003 ZOSTER VACCINES (1 of 2) 2003 OSTEOPOROSIS SCREENING INITIAL (ONE-TIME) 2018 MAMMOGRAM 08/14/2022 08/14/2020 INFLUENZA VACCINE (#1) 2025 , 04/04/2019, 05/04/2018, Additional history exists COVID-19 VACCINE (3 - 2024- season) 2025 10/02/2020, 09/07/2020 RSV VACCINE (1 - 1-dose 75+ series) 01/10/2028 Adult Td,Tdap Booster 11/19/2028 11/19/2018 SMOKING STATUS SCREENING (Once After 26 Yrs) Completed 03/27/2020 HEPATITIS A VACCINES Aged Out No long er eligible based on patient's age to complete this topic HIB VACCINES Aged Out No longer eligi ble based on patient's age to complete this topic MENINGOCOCCAL VACCINES (ACWY) Aged Out No longer eligible based on patient's age to complete this topic MENINGOCOCCAL VACCINES (B) Aged Out N o longer eligible based on patient's age to complete this topic Medical Devices Not on file Procedures Procedure Name Priority Date/Time Associated Diagnosis Comments MAMMOGRAPHY Routine 08/14/2020 from Last 3 Months or Most Recently Relevant to Health Maintenance Results * MAMMOGRAPHY FOR RESULT ENTRY ONLY (08/14/2020) Joanna Bryan MD HEALTH MAINTENANCE E dited Result - Final from Last 3 Months or Most Recently Relevant to Health Maintenance Insurance [facility] [facility] [employer] MEDICARE SUPPLEMENT MEDICARE PART A & B [employer] MEDICARE SUPPLEMENT MEDICARE PART A & B [employer] MEDICARE SUPPLEMENT [id number] [place] [address] MEDICARE SUPPLEMENT [id number] [place] [address] MEDICARE SUPPLEMENT MEDICARE PART A & B [facility] MEDICARE SUPPLEMENT [facility] MEDICARE SUPPLEMENT MEDICARE PART A & B [facility] [employer] MEDICARE SUPPLEMENT MEDICARE PART A & B [facility] [employer] MEDICARE SUPPLEMENT MEDICARE PART A & B Care Teams Curriculum And Assessment Coordinator Relationship Specialty Start Date End Date Vincenzo Hussein MD [address] [place] [id number] PCP - General Internal Medicine 04/09/25 Additional Source Comments The information contained in this document represents components of the legal health record. It is not the complete legal health record.[facility]
== END 2025-07-15 11:05 | disposition home or self-care (01) ==
LOC: HO.HMCSH 10:01
PROVIDERS: PCP Internal Medicine; Visit Provider Internal Medicine
DX: E78.5 Hyperlipidemia, unspecified (principal)

== ENCOUNTER → 2025-07-15 10:01 | Outpatient (BNVA) | payer MEDICARE, OTHER, SELFPAY | PROVIDERS: PCP Internal Medicine; Visit Provider Internal Medicine | DX: E78.5 Hyperlipidemia, unspecified (principal); Z13.31 Encounter for screening for depression; M54.50 Low back pain, unspecified; G89.29 Other chronic pain | CPT/HCPCS: 96127; 99212 ==